=== PATIENT | female | born 1935 | race Caucasian/White ===

== ENCOUNTER 2017-11-06 10:22 | Observation (INO) | payer MEDICARE, OTHER ==
[2017-11-06 11:46] LABS: #Eosinphils 0.1 thou/uL (0.0-0.7); #Monocytes 0.6 thou/uL (0.11-0.59); #Neutrophils 7.4 thou/uL (1.40-6.50); %Basophils 0.5 % (0.0-1.0); %Eosinophils 1.6 % (0.0-10.0); %Lymphocytes 10.5 % (21.0-51.0); %Monocytes 6.2 % (0.0-10.0); Hematocrit 37.1 % (36.0-47.0); Mean Platelet Volume 5.3 fL (7.4-10.4); Red Blood Cell (RBC) Count 3.97 mill/uL (4.20-5.40); White Blood Cell (WBC) Count 9.1 thou/uL (4.8-10.8)
[2017-11-06 11:53] LABS: PTT 28.6 SEC (22.9-36.1); Prothrombin Time 12.5 SEC (12.0-14.7)
[2017-11-06 11:57] LABS: Lactic Acid - Sepsis 1.5 mmol/L (0.5-2.2)
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
[2017-11-06 12:06] LABS: Troponin I Less than 0.010 ng/mL (< 0.028)
[2017-11-06 12:09] LABS: Anion Gap 15 mmol/L (10-20); BUN (Urea Nitrogen) 19 mg/dL (9.8-20.1); CK (CPK) 130 U/L (29-168); Calc. Creatinine Clearance 0 mL/min (70-130); Carbon Dioxide 21 mmol/L (23-31); Chloride 95 mmol/L (98-107); Estimated GFR-MDRD 52; Lipase 21 U/L (8-78)
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
[2017-11-06 13:43] LABS: Bilirubin Negative (Negative); Blood, Urine Negative (Negative); Glucose, Urine (Dipstick) Negative (Negative); Ketone, Urine Negative (Negative); Nitrite Negative (Negative); Protein, Urine (Dipstick) Negative (Neg-Trace); Urobilinogen 0.2 mg/dL (0.2-1.0)
[2017-11-06] MEDS ORDERED: Acetaminophen 325 MG TAB PO PRN (16:02)
[2017-11-06] MEDS ORDERED: Acetaminophen 650 MG Suppository PR PRN (16:02)
[2017-11-06 17:04] LABS: Magnesium 2.1 mg/dL (1.6-2.6); Phosphorus 3.1 mg/dL (2.3-4.7)
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
[2017-11-06] MEDS ORDERED: ISOVUE-370 76%-LOCM 1 ML ONE (17:47)
[2017-11-06 18:55] VITALS: BMI 25.0
[2017-11-06] MEDS: Sodium Chloride 0.9% 1,000 ML IV SCH (19:55)
[2017-11-06] MEDS ORDERED: Ondansetron HCl/PF 4 MG/2 ML Vial IVP PRN (20:14)
[2017-11-06] MEDS ORDERED: Acetaminophen/Codeine 30-300mg Tablet PO PRN (20:14)
[2017-11-06] MEDS: Temazepam 15 MG CAP PO SCH (20:24)
[2017-11-06] MEDS: traMADol HCl 50 MG TAB PO SCH (20:26)
[2017-11-07 05:05] LABS: #Eosinphils 0.1 thou/uL (0.0-0.7); #Lymphocytes 1.4 thou/uL (1.20-3.40); #Monocytes 0.8 thou/uL (0.11-0.59); #Neutrophils 4.1 thou/uL (1.40-6.50); %Basophils 0.7 % (0.0-1.0); %Eosinophils 1.5 % (0.0-10.0); %Lymphocytes 21.3 % (21.0-51.0); %Monocytes 13.1 % (0.0-10.0); Hematocrit 31.9 % (36.0-47.0); Mean Platelet Volume 5.2 fL (7.4-10.4); Red Blood Cell (RBC) Count 3.43 mill/uL (4.20-5.40); White Blood Cell (WBC) Count 6.5 thou/uL (4.8-10.8)
[2017-11-07 05:35] LABS: Anion Gap 12 mmol/L (10-20); BUN (Urea Nitrogen) 15 mg/dL (9.8-20.1); Calc. Creatinine Clearance 56 mL/min (70-130); Calcium 9.4 mg/dL (7.8-10.44); Carbon Dioxide 24 mmol/L (23-31); Chloride 97 mmol/L (98-107); Estimated GFR-MDRD 69
[2017-11-07] MEDS: Cephalexin 250 MG CAP PO SCH (09:09)
[2017-11-07] MEDS: Sodium Chloride 0.9% 1,000 ML IV SCH ×2 (09:10→15:17)
[2017-11-07] MEDS: CeleCOXIB 100 MG CAP PO SCH (09:10)
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
[2017-11-07] MEDS ORDERED: Amlodipine 5 MG TAB PO SCH (13:30)
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
--- NOTE | 2017-11-07 18:39 | MRI ---
MR ANGIOGRAM BRAIN: Date: 11-07-17 Provided Clinical History: Syncope. FINDINGS: 3D [id number] imaging was performed of the hus[place] of [place]. There is no evidence for focal vesse l stenosis, branch occlusion or aneurysm within the limitations of this technique. IMPRESSION: Normal MRA brain. POS: [facility]
--- NOTE | 2017-11-07 20:48 | MRI ---
MRI BRAIN WITH AND WITHOUT CONTRAST: Date: 11-07-17 Provided Clinical History: Syncope. FINDINGS: Evaluation is limited due to patient motion on the T2 weighted sequence. The ventricular system appears normal in size and morphology. There is no evidence for intracranial h emorrhage or mass effect. There is conspicuous patchy signal alteration involving the periventricular and deep cerebral white matter, most likely reflecting changes of chronic microvascular ischemic tristen nge. There is no evidence for restricted diffusion to suggest recent infarction. There is no abnormal contrast enhancement identified. Appropriate flow voids are seen within the major intracranial vesse ls. The extracranial soft tissues and calvarial marrow signal demonstrate an unremarkable MR appearan ce. IMPRESSION: Limited examination as described above, with evidence for extensive chronic microvascular white matte r ischemic change. No evidence for an acute intracranial abnormality. POS: [facility]
[2017-11-07] MEDS: Temazepam 15 MG CAP PO SCH (21:47)
[2017-11-07] MEDS: traMADol HCl 50 MG TAB PO SCH (21:47)
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
[2017-11-08] MEDS: Sodium Chloride 0.9% 1,000 ML IV SCH (05:02)
[2017-11-08 05:06] LABS: Anion Gap 12 mmol/L (10-20); BUN (Urea Nitrogen) 12 mg/dL (9.8-20.1); Calc. Creatinine Clearance 59 mL/min (70-130); Calcium 9.3 mg/dL (7.8-10.44); Carbon Dioxide 25 mmol/L (23-31); Chloride 101 mmol/L (98-107); Estimated GFR-MDRD 74
[2017-11-08 05:37] LABS: Band 1 % (5-11); Hematocrit 32.9 % (36.0-47.0); Mean Platelet Volume 5.4 fL (7.4-10.4); Neutrophil 72 % (42-75); Red Blood Cell (RBC) Count 3.51 mill/uL (4.20-5.40); White Blood Cell (WBC) Count 5.3 thou/uL (4.8-10.8)
[2017-11-08 08:35] VITALS: BP 148/69; TEMP 98.2
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
[2017-11-08] MEDS ORDERED: Amlodipine 5 MG TAB PO SCH (09:00)
[2017-11-08] MEDS: CeleCOXIB 100 MG CAP PO SCH (10:17)
[2017-11-08] MEDS: Cephalexin 250 MG CAP PO SCH (10:17)
--- NOTE | 2017-11-08 11:17 | DIS ---
DATE OF ADMISSION: 11/06/2017 DATE OF DISCHARGE: 11/08/2017 PRIMARY CARE PROVIDER: Priyank Ramos M.D. DISCHARGE DIAGNOSES: 1. Syncope. 2. Hyponatremia. 3. Orthostatic hypotension. Please note that this is a second discharge summary dictated on this patient. I dictated one on 11/07/2017. However, prior to discharge, patient developed dizziness, nausea and vomiting. Discharge was held. At that time, she had orthostatic hypotension. Repeat vitals did not show any orthostatic hypotension. CONDITION OF PATIENT ON THE DAY OF DISCHARGE: Stable. I assessed Ms. Hernandez on the day of discharge. She denies any chest pain or palpitations. She denies any dizziness. PHYSICAL EXAMINATION: VITAL SIGNS: Stable. There is no orthostasis. HEART: S1 and S2 are heard, regular. LUNGS: Clear to auscultation bilaterally. HOSPITAL COURSE: Ms. Hernandez is a pleasant 82-year-old lady who was admitted to [facility] on 11/08/2017 for syncope and hyponatremia. She was seen by Cardiology Service. Please refer to my previous discharge summary for further information. She was also seen by Neurology Service. She had an MRI of the brain with and without contrast. The evaluation was limited due to patient motion on the T2 weighted sequence. There was no evidence for acute intracranial abnormality. She also had MRA of the brain, which was normal. She was assessed by Neurology and it was felt that her syncope was likely orthostatic in nature. As noted in the previous discharge summary, her diuretics were stopped and she has been started on amlodipine. Many thanks for allowing me to participate in your patient's care. Please feel free to contact me with any questions or concerns. LABORATORY DATA: On the day of discharge, she has sodium 134, potassium 3.6, creatinine 0.75, 8:00 a.m. cortisol level normal at 17.6, white count 5300, hemoglobin 11, and platelet count 270,000. CONSULTATIONS DURING THIS HOSPITALIZATION: Neurology, Dr. Azeb French and Cardiology, Dr. Lawanda Jo. DISCHARGE MEDICATIONS: Keflex 250 mg daily, temazepam 15 mg at bedtime, Norvasc 2.5 mg daily and tramadol 50 mg at bedtime. DISCHARGE DESTINATION: Home. ADDENDUM: The patient's 2D echocardiogram shows that her left ventricular ejection fraction was 60%-65%, normal rate ventricular size and function, trace mitral regurgitation, structurally normal aortic valve and mild tricuspid regurgitation. MTDD
== END 2017-11-08 11:48 | disposition home or self-care (01) ==
LOC: ERS 10:22 → 2SW 18:12
PROVIDERS: ADMIT Internal Medicine; ATTEND Internal Medicine
DX: I95.1 Orthostatic hypotension (principal); E87.1 Hypo-osmolality and hyponatremia; M25.512 Pain in left shoulder; S22.42XA Multiple fractures of ribs, left side, initial encounter for closed fracture; S42.002A Fracture of unspecified part of left clavicle, initial encounter for closed fracture; Z85.72 Personal history of non-Hodgkin lymphomas; Z87.440 Personal history of urinary (tract) infections; Z80.0 Family history of malignant neoplasm of digestive organs; Z80.1 Family history of malignant neoplasm of trachea, bronchus and lung; Z90.710 Acquired absence of both cervix and uterus; Z90.49 Acquired absence of other specified parts of digestive tract; V43.52XA Car driver injured in collision with other type car in traffic accident, initial encounter
CPT/HCPCS: 70450; 70544; 70553; 71010; 72125; 73030; 74177; 80048 ×3; 81003; 82533; 82550; 82553; 83605; 83690; 83735; 83930; 83935; 84100; 84484; 85025 ×3; 85610; 85730; 87086; 93005; 93306; 96361 ×4; 96374; 97139 ×2; 99285; G0378; 36415; 96360; J2405

== ENCOUNTER 2018-03-21 12:36 | Outpatient (CLI) | payer MEDICARE ==
[2018-03-21] MEDS ORDERED: ISOVUE-370 76%-LOCM 1 ML ONE (13:11)
== END 2018-03-21 12:37 | disposition home or self-care (01) ==
LOC: BICCT 12:36
PROVIDERS: ATTEND Otolaryngology
DX: R22.0 Localized swelling, mass and lump, head (principal); D49.0 Neoplasm of unspecified behavior of digestive system; R59.1 Generalized enlarged lymph nodes; K11.0 Atrophy of salivary gland
CPT/HCPCS: 70491

== ENCOUNTER 2018-03-29 12:03 | Day surgery (SDC) | payer MEDICARE ==
[2018-03-28 12:53] VITALS: BMI 25.4
[2018-03-29] MEDS ORDERED: Sodium Bicarbonate 2.5 MEQ/5 ML VIAL ONE (12:45)
[2018-03-29 14:31] VITALS: BP 143/68; TEMP 97.5
--- NOTE | 2018-03-29 15:50 | ULT ---
FNA BIOPSY ULTRASOUND GUIDANCE LEFT FACE: Date: 03/29/18 CLINICAL INDICATION: Left facial mass, history of lymphoma. PROCEDURE: Informed consent was obtained. The patient was escorted to the procedural suite. The patient was plac ed in the supine position. The mass of interest of the left buccal region was localized sonographical ly. The regional soft tissues were appropriately prepped and draped in the standard sterile fashion. Topical anesthesia was achieved with buffered 1% lidocaine. Subsequently, five separate FNA samples u sing FNA sampling procedure using 25 gauge needles were performed. These samples were provided to the attending pathologist, Josr Lora. The requested number of FNA sampling procedures for interpreta tion were performed. All devices were removed from the patient. The patient tolerated the procedure w ell and without evidence of complication. Hemostasis was achieved. Imaging was stored for documentati on. IMPRESSION: Successful ultrasound guided FNA/biopsy of left facial mass, left buccal region. Pathology results pending. POS: [facility]
== END 2018-03-29 14:00 | disposition home or self-care (01) ==
LOC: ULT 12:03
PROVIDERS: ATTEND Internal Medicine Hematology & Oncology
PROC: 07D Lymphatic and Hemic Systems, Extraction (ICD-10-PCS; principal; 2018-03-29)
DX: C85.11 Unspecified B-cell lymphoma, lymph nodes of head, face, and neck (principal); C82.90 Follicular lymphoma, unspecified, unspecified site; Z79.899 Other long term (current) drug therapy
CPT/HCPCS: 10022; 76942; 88172; 88173; 88184

== ENCOUNTER 2018-04-06 08:14 | Outpatient (CLI) | payer MEDICARE ==
--- NOTE | 2018-04-06 12:59 | PET ---
PET SCAN WITH CT ATTENUATION CORRECTION: History An 83-year-old female. Non-Hodgkin's lymphoma. COMPARISON: None. TECHNIQUE: PET scan with CT attenuation correction is performed from the base of the brain to the proximal thigh s following the intravenous administration of 12.2 mCi of [id number]. HEAD AND NECK: Extensive FDG avidity involving multiple lymph nodes in the left neck. There is a left periauricular lymph node with a maximum SUV of 3.8, and an additional left periauricular lymph node with a maximum SUV of 3.1, left level II lymph nodes with a maximum SUV of 3.5, left level I lymph nodes with an YI V of 5.6 and 6.3, left level V lymph nodes with a maximum SUV ranging between 2.3 and 3.4. CHEST: Increased FDG avidity involving the lymph nodes in the AP window with a maximum SUV of 2.8. Increase d FDG avidity in the right hilum with a maximum SUV of 4.1. ABDOMEN AND PELVIS: No abnormal FDG localization. OSSEOUS: No abnormal FDG. The maximum SUV of the liver is 3.2. The maximum SUV of the left ventricle is 2.6. Based upon these findings, the patient has a Gillian score of 5B. IMPRESSION: Neck and chest lymphoma as described above. Maximum SUVs have been described above. Hillview score is 5B. POS: [facility]
== END 2018-04-06 08:15 | disposition home or self-care (01) ==
LOC: PET 08:14
PROVIDERS: ATTEND Internal Medicine Hematology & Oncology
DX: C85.90 Non-Hodgkin lymphoma, unspecified, unspecified site (principal)
CPT/HCPCS: 78815; A9552

== ENCOUNTER 2018-07-04 12:09 | Outpatient (CLI) | payer MEDICARE ==
--- NOTE | 2018-07-04 16:17 | PET ---
RADIONUCLIDE PET SCAN WITH ATTENUATION CORRECTION: HISTORY: Non-Hodgkin's lymphoma. Restaging. COMPARISON: 04/06/18. FINDINGS: Uptake is again demonstrated throughout the enteric system and ulna along each urinary tract. Uptake just lateral to the left side of the mandible currently shows a maximum SUV of 5.5 (previously 10.1). Left internal jugular lymph nodes show a maximum SUV of 3.1 (previously 3.5). Left submandi bular lymph node shows a maximum SUV of 4.1 (previously 10.1). A hypermetabolic node just lateral to the left thyroid lobe shows a maximum SUV of 2.3 (4.4). In the mediastinum, activity at the right hilum shows a maximum SUV of 3.9 (4.1). AP window lymph no de uptake shows a maximum SUV of 3.3 (2.8). Liver uptake calculated at 3.1 maximum SUV. Mediastinum 2.6. IMPRESSION: Significant improvement. Partial response. Deauville score 4. POS: [facility]
== END 2018-07-04 12:10 | disposition home or self-care (01) ==
LOC: PET 12:09
PROVIDERS: ATTEND Internal Medicine Hematology & Oncology
DX: C85.88 Other specified types of non-Hodgkin lymphoma, lymph nodes of multiple sites (principal)
CPT/HCPCS: 78815; A9552

== ENCOUNTER 2019-04-18 12:49 | Outpatient (CLI) | payer MEDICARE ==
--- NOTE | 2019-04-18 14:10 | RAD ---
TWO VIEWS CHEST: Date: 04-18-19 Provided Clinical History: Dyspnea. FINDINGS: Comparison 11-06-17. Cardiac and mediastinal silhouette is within normal limits. No focal consolidati on, pleural fluid, or pneumothorax apparent. Nonspecific prominence of the pulmonary interstitium. Va scular calcification involves the aortic arch. IMPRESSION: No evidence for an acute cardiopulmonary process. POS: [facility]
== END 2019-04-18 12:50 | disposition home or self-care (01) ==
LOC: RAD 12:49
PROVIDERS: ATTEND Internal Medicine Critical Care Medicine
DX: R06.00 Dyspnea, unspecified (principal)
CPT/HCPCS: 71046

== ENCOUNTER 2019-08-01 11:40 | Inpatient (IN) | payer MEDICARE ==
[2019-08-01] MEDS ORDERED: Diltiazem 125 MG/25 ML ONE (12:04)
[2019-08-01 12:40] LABS: Hemoglobin 10.2 g/dL (12.0-16.0); Mean Corpuscular HGB CONC 33.6 g/dL (32.0-36.0); Mean Corpuscular Hemoglobin 29.8 pg (27.0-31.0); Mean Corpuscular Volume 88.6 fL (78.0-98.0); Mean Platelet Volume 5.2 fL (7.4-10.4); Platelet Count 240 thou/uL (130-400); RBC Distribution Width 13.5 % (11.5-14.5); Red Blood Cell (RBC) Count 3.42 mill/uL (4.20-5.40); White Blood Cell (WBC) Count 12.7 thou/uL (4.8-10.8)
[2019-08-01 12:59] LABS: ALT (SGPT) 11 U/L (8-55); AST (SGOT) 10 U/L (5-34); Albumin 2.7 g/dL (3.4-4.8); Alkaline Phosphatase 212 U/L (40-150); Anion Gap 12 mmol/L (10-20); BUN (Urea Nitrogen) 29 mg/dL (9.8-20.1); Bilirubin, Total 0.6 mg/dL (0.2-1.2); CK (CPK) 10 U/L (29-168); Calc. Creatinine Clearance 0 mL/min (70-130); Calcium 8.2 mg/dL (7.8-10.44); Carbon Dioxide 16 mmol/L (23-31); Chloride 105 mmol/L (98-107); Estimated GFR-MDRD 23; Globulin 2.1 g/dL (2.4-3.5); Glucose 104 mg/dL (83-110); Potassium 3.2 mmol/L (3.5-5.1); Protein, Total 4.8 g/dL (6.0-8.3); Sodium 130 mmol/L (136-145)
[2019-08-01 13:00] LABS: Band 50 % (5-11); Dohle Bodies SLIGHT; Lymphocytes 5 % (21-51); MDiff Complete? YES; Monocytes 6 % (0-10); Neutrophil 39 % (42-75); Platelet Morphology Comment Appears Adequate; Polychromasia SLIGHT = 2-3 cells (100X) (0-2/hpf); Reflex for Review?? YES
--- NOTE | 2019-08-01 13:15 | RAD ---
CHEST ONE VIEW: 08/01/19 COMPARISON: 11/06/17 HISTORY: Pain. Atrial fibrillation. FINDINGS: Normal cardiac silhouette. Pulmonary vessels and hilum are normal. Costophrenic angles are clear. The re are increased opacities superimposed upon chronic change. Possibility of interstitial infiltrate i s raised. No pneumothorax or acute osseous abnormalities. Old posterior left third rib fracture is no emanuel. IMPRESSION: Interstitial infiltrate superimposed upon chronic change. Continued surveillance to ensure resolution . POS: [facility]
[2019-08-01] MEDS ORDERED: Enoxaparin Sodium 80 MG/0.8 ML SYRINGE ONE (14:14)
[2019-08-01] MEDS ORDERED: Enoxaparin Sodium 60 MG/0.6 ML SYRINGE ONE (14:17)
[2019-08-01] MEDS ORDERED: Diltiazem 125 MG in Sodium Chloride 0.9% 100 ML IVPB SCH (15:15)
--- NOTE | 2019-08-01 16:03 | HP ---
PRIMARY CARE PROVIDER: Dr. Priyank Ramos. The patient referred to the [facility] by [facility]. ADMITTING COMPLAINT: Fever. HISTORY OF PRESENT ILLNESS: The patient has had a 5-day illness. She has had temperatures up to 102 in the evening. She has had a hard, shaking chills, sweats during the evenings. It is pertinent that she was diagnosed with UTI 2 days ago as an outpatient, put on an oral agent for which she has only had three of the q.i.d. medicine. PAST MEDICAL HISTORY: Pertinent only for recurrent UTIs and a history of lymphoma first in 1978 recurred in 1979 and recurred again later. She has been on no medicines for it in about 3 years. She has no history of cardiac disease, hypertension, diabetes. REVIEW OF SYSTEMS: GENERAL: She has had some dizziness with the fever and some significant malaise. CARDIORESPIRATORY: No chest pain. No orthopnea. No paroxysmal nocturnal dyspnea. No palpitations. RESPIRATION: She has had dyspnea on exertion, but no coughing or wheezing. GASTROINTESTINAL: She had nausea and vomiting about a week ago and she has had diarrhea frequently for the past 5 days. She states it is a creamy looking substance. MEDICATIONS: Chronic medicines none. ALLERGIES: NONE. PHYSICAL EXAMINATION: VITAL SIGNS: She was initially hypotensive, given a bolus of normal saline, started on diltiazem. Her current blood pressure is 136/84, pulse is in the 115 range, respirations 16. She is currently afebrile. NECK: She has no neck vein distention. CHEST: Clear to auscultation and percussion. HEART: Has a rapid irregular rhythm. Variable heart sounds. No murmurs appreciated. ABDOMEN: Soft. Bowel sounds are somewhat increased. No tenderness. No mass. EXTREMITIES: No cyanosis, clubbing, or edema. SKIN: Warm and dry. IMAGING DATA: Studies that were done: EKG reveals atrial fibrillation with a rapid ventricular response and no significant ST-T abnormality at this time. Chest x-ray, normal cardiac silhouette. No confluent infiltrates, pulmonary edema. LABORATORY DATA: Sodium 130, potassium 3.2, CO2 16, BUN 29, creatinine 2.04, alkaline phosphatase 212. White count 12.7 with a marked bandemia. Hemoglobin 10.2, and platelet count 240,000. ADMITTING DIAGNOSES: 1. Sepsis syndrome with acute kidney injury, acidosis. 2. Atrial fibrillation with a rapid ventricular response. 3. Diarrhea. 4. Urinary tract infection with Escherichia coli sensitive to multiple cephalosporins. 5. History of lymphoma. PLAN: 1. IV fluids. 2. Blood cultures. 3. Stool for C diff. 4. Increase diltiazem to 10 mg an hour. 5. Rocephin IV. 6. Frequent re-evaluations. 7. I have discussed code status with the patient and her . She is full code. He is the surrogate decision maker. Job ID: [id number]
[2019-08-01 16:07] VITALS: BMI 24.3
[2019-08-01] MEDS ORDERED: Acetaminophen 325 MG TAB PO PRN (16:42)
[2019-08-01] MEDS ORDERED: Senokot S 8.6-50 MG TAB PO PRN (16:42)
[2019-08-01] MEDS ORDERED: HYDROcodone/Acetaminophen 5/325 mg Tablet PO PRN (16:42)
[2019-08-01] MEDS: Lactated Ringer's 1,000 ML IV SCH (17:46)
[2019-08-01] MEDS: cefTRIAXone\\ROCEPHIN 1 GM in Sodium Chloride 0.9% 100 ML IVPB SCH (17:53)
[2019-08-01] MEDS: Temazepam 15 MG CAP PO SCH (21:16)
[2019-08-01] MEDS: Famotidine 20 MG TAB PO SCH (21:16)
[2019-08-02] MEDS: Lactated Ringer's 1,000 ML IV SCH ×3 (03:16→21:25)
[2019-08-02 05:13] LABS: #Eosinphils 0.2 thou/uL (0.0-0.7); #Lymphocytes 0.9 thou/uL (1.20-3.40); #Monocytes 1.1 thou/uL (0.11-0.59); #Neutrophils 9.5 thou/uL (1.40-6.50); %Basophils 0.3 % (0.0-1.0); %Lymphocytes 7.8 % (21.0-51.0); %Monocytes 9.6 % (0.0-10.0); %Neutrophils 80.4 % (42.0-75.0); Hemoglobin 9.7 g/dL (12.0-16.0); Mean Corpuscular HGB CONC 33.6 g/dL (32.0-36.0); Mean Corpuscular Hemoglobin 29.8 pg (27.0-31.0); Mean Corpuscular Volume 88.6 fL (78.0-98.0); Mean Platelet Volume 5.4 fL (7.4-10.4); Platelet Count 273 thou/uL (130-400); RBC Distribution Width 13.7 % (11.5-14.5); Red Blood Cell (RBC) Count 3.26 mill/uL (4.20-5.40); White Blood Cell (WBC) Count 11.9 thou/uL (4.8-10.8)
[2019-08-02 05:41] LABS: ALT (SGPT) 11 U/L (8-55); AST (SGOT) 14 U/L (5-34); Albumin 2.6 g/dL (3.4-4.8); Alkaline Phosphatase 201 U/L (40-150); Anion Gap 13 mmol/L (10-20); BUN (Urea Nitrogen) 29 mg/dL (9.8-20.1); Bilirubin, Total 0.4 mg/dL (0.2-1.2); Calc. Creatinine Clearance 24 mL/min (70-130); Carbon Dioxide 18 mmol/L (23-31); Chloride 104 mmol/L (98-107); Estimated GFR-MDRD 28; Globulin 2.4 g/dL (2.4-3.5); Glucose 92 mg/dL (83-110); Potassium 3.6 mmol/L (3.5-5.1); Sodium 131 mmol/L (136-145)
[2019-08-02] MEDS ORDERED: Prevnar 13-Val Conj/PF 0.5 ML SYRINGE IM ONE (09:00)
--- NOTE | 2019-08-02 09:37 | PDOC.HOSPP ---
- Subjective Encounter Date: 08/02/19 Encounter Time: 09:33 Subjective: no fever, sweats, etc - Objective Vital Signs & Weight: Vital Signs (12 hours) Temp Pulse Resp BP BP Pulse Ox 08/02/19 07:50 97 08/02/19 07:01 98.4 F 82 20 115/65 97 08/02/19 03:17 98.2 F 70 16 104/53 L 96 08/01/19 23:55 98.8 F 85 18 126/58 L 96 Weight Weight 141 lb 8 oz I&O: 08/01/19 08/02/19 08/03/19 06:59 06:59 06:59 Intake Total 300 Balance 300 Result Diagrams: 08/02/19 05:01 08/02/19 05:01 Hospitalist ROS - Medication Medications: Active Medications Generic Name Dose Route Start Last Admin Trade Name Freq PRN Reason Stop Dose Admin Famotidine 20 mg 08/01/19 21:00 08/01/19 21:16 Pepcid PO 20 mg QPM JOSE FRANCISCO Administration Ceftriaxone Sodium 1 gm/ 100 mls @ 200 mls/hr 08/01/19 17:00 08/01/19 17:53 Sodium Chloride IVPB 100 mls Q24HR JOSE FRANCISCO Administration Lactated Ringer's 1,000 mls @ 125 mls/hr 08/01/19 17:00 08/02/19 03:16 Lactated Ringer's IV 1,000 mls .Q8H JOSE FRANCISCO Administration Temazepam 15 mg 08/01/19 21:00 08/01/19 21:16 Restoril PO 15 mg HS JOSE FRANCISCO Administration - Exam Neck: no JVD Heart: RRR, no murmur Respiratory: CTAB Gastrointestinal: soft, normal bowel sounds Extremities: no edema Hosp A/P (1) Sepsis Code(s): A41.9 - SEPSIS, UNSPECIFIED ORGANISM Status: Acute Qualifiers: Sepsis type: Escherichia coli Severe sepsis acute organ dysfunction type: acute renal failure Severe sepsis shock status: without septic shock (2) Atrial fibrillation with rapid ventricular response Code(s): I48.91 - UNSPECIFIED ATRIAL FIBRILLATION Status: Acute (3) Diarrhea Code(s): R19.7 - DIARRHEA, UNSPECIFIED Status: Acute Qualifiers: Diarrhea type: unspecified type Qualified Code(s): R19.7 - Diarrhea, unspecified (4) Lymphoma in remission Code(s): C85.90 - NON-HODGKIN LYMPHOMA, UNSPECIFIED, UNSPECIFIED SITE Status: Chronic (5) CKD stage G3b/A2, GFR 30-44 and albumin creatinine ratio 30-299 mg/g Code(s): N18.3 - CHRONIC KIDNEY DISEASE, STAGE 3 (MODERATE) Status: Acute (6) Urinary tract infection Status: Acute Qualifiers: Urinary tract infection type: site unspecified Hematuria presence: without hematuria Qualified Code(s): N39.0 - Urinary tract infection, site not specified - Plan cont iv rocephin for sepsis, uti atrial fi spontaeneouly resoved- await cardiology input
[2019-08-02] MEDS ORDERED: Triple Antibiotic Oint 1 GM Packet TOP PRN (11:50)
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
[2019-08-02] MEDS: cefTRIAXone\\ROCEPHIN 1 GM in Sodium Chloride 0.9% 100 ML IVPB SCH (16:57)
[2019-08-02] MEDS ORDERED: traMADol HCl 50 MG TAB PO SCH (21:00)
[2019-08-02] MEDS ORDERED: Temazepam 15 MG CAP PO SCH (21:00)
[2019-08-02] MEDS: Temazepam 15 MG CAP PO SCH (21:24)
[2019-08-02] MEDS: Apixaban 2.5 MG TAB PO SCH (21:25)
[2019-08-02] MEDS: Famotidine 20 MG TAB PO SCH (21:25)
[2019-08-03 04:41] LABS: #Basophils 0.1 thou/uL (0.0-0.2); #Eosinphils 0.3 thou/uL (0.0-0.7); #Lymphocytes 1.1 thou/uL (1.20-3.40); #Monocytes 0.8 thou/uL (0.11-0.59); %Basophils 0.8 % (0.0-1.0); %Eosinophils 2.8 % (0.0-10.0); %Lymphocytes 11.4 % (21.0-51.0); Hemoglobin 9.9 g/dL (12.0-16.0); Mean Corpuscular HGB CONC 34.1 g/dL (32.0-36.0); Mean Corpuscular Hemoglobin 30.3 pg (27.0-31.0); Mean Corpuscular Volume 88.8 fL (78.0-98.0); Mean Platelet Volume 5.4 fL (7.4-10.4); Platelet Count 319 thou/uL (130-400); RBC Distribution Width 13.8 % (11.5-14.5); Red Blood Cell (RBC) Count 3.27 mill/uL (4.20-5.40); White Blood Cell (WBC) Count 9.2 thou/uL (4.8-10.8)
[2019-08-03 04:59] LABS: ALT (SGPT) 24 U/L (8-55); AST (SGOT) 41 U/L (5-34); Albumin 2.7 g/dL (3.4-4.8); Alkaline Phosphatase 194 U/L (40-150); Anion Gap 11 mmol/L (10-20); BUN (Urea Nitrogen) 25 mg/dL (9.8-20.1); Bilirubin, Total 0.4 mg/dL (0.2-1.2); Calc. Creatinine Clearance 28 mL/min (70-130); Calcium 9.1 mg/dL (7.8-10.44); Carbon Dioxide 21 mmol/L (23-31); Chloride 104 mmol/L (98-107); Estimated GFR-MDRD 33; Globulin 2.3 g/dL (2.4-3.5); Glucose 91 mg/dL (83-110); Potassium 3.4 mmol/L (3.5-5.1); Sodium 133 mmol/L (136-145)
[2019-08-03 08:06] VITALS: BP 129/76; TEMP 98.5
[2019-08-03] MEDS: Lactated Ringer's 1,000 ML IV SCH (09:07)
[2019-08-03] MEDS: Apixaban 2.5 MG TAB PO SCH (09:10)
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
--- NOTE | 2019-08-04 05:24 | DIS ---
DATE OF ADMISSION: 08/01/2019 DATE OF DISCHARGE: 08/03/2019 DISCHARGE DIAGNOSES: 1. Atrial fibrillation with rapid ventricular rate. 2. Urinary tract infection with Escherichia coli. 3. Heme-positive stools. 4. Diarrhea. 5. Acute on chronic kidney disease. 6. Chronic kidney disease, stage 3. 7. Chronic cough. 8. Anemia of chronic renal disease. 9. Hyponatremia. 10. Hypokalemia. 11. Elevated alkaline phosphatase. 12. History of lymphoma. HISTORY OF PRESENT ILLNESS: This patient is an 84-year-old female, who presented via the emergency department and initially admitted by Dr. Camargo. Please see his dictated H and P for full details. Essentially, the patient presented with fever she had noted for 5 days. She had been diagnosed with urinary tract infection 2 days prior and had been on p.o. nitrofurantoin. In her workup, she was noted to be in atrial fibrillation with rapid ventricular rate without significant findings on her EKG. Otherwise, she had hyponatremia with a sodium of 130, potassium was 3.2, creatinine was 2.04 given her GFR that was below her baseline. White count was 12.7 with bandemia. She was diagnosed with sepsis due to urinary tract infection. She was also noted to report episodes of diarrhea. She was admitted to the hospital, started on IV antibiotics with Rocephin and IV diltiazem drip. HOSPITAL COURSE: The patient had fairly rapid spontaneous conversion of her atrial fibrillation to normal sinus rhythm. She had an echocardiogram, which revealed ejection fraction of 55% to 60%, grade 1/3 diastolic dysfunction, moderate TR and some elevated right ventricular systolic pressure of 41 mmHg. She was seen in consultation by Cardiology, who had the patient on p.o. diltiazem and p.o. metoprolol along with low-dose Eliquis given her renal function. The patient remained in normal sinus rhythm. The patient's urinary tract infection was initially treated with Rocephin. Cultures from the outpatient setting confirmed that it was E coli and that it was sensitive to everything tested with the exception of Bactrim. The patient has recurrent urinary tract infections with numerous E coli infections. The patient's diarrhea was evaluated with lab testing including C diff, which was negative. Stool for Campylobacter antigen was negative. Shiga toxin negative. She was positive for occult blood and elevated lactoferrin. She reported that her diarrhea was beginning to ladonna significantly at the time of her discharge. The patient did have some mild hyponatremia at the time of admission. Her sodium increased daily with hydration. Plan reviewing her previous numbers as she is chronically hyponatremic, running around 132 to 133, and she was at that baseline at the time of discharge. The patient is also noted to have acute renal insufficiency on top of chronic kidney disease, stage 3. Her GFR typically runs around 50s to 60s. At the time of admission, she was at 23; however, with hydration, it continued to climb up to 33 and it appeared as though it was improving. The patient had mild hypokalemia, treated with oral repletion. The patient had slightly elevated alkaline phosphatase, felt to likely be due to her diarrheal illness. Prior values were within the normal range. It was improving and can be followed up as an outpatient. The patient's heme-positive stools were felt to be due to more of an acute diarrheal illness. Her hemoglobin remained stable and there was no roya blood. It was felt this could be followed up as an outpatient. The patient reported a chronic cough. She says she has seen Dr. Lopez in the past and has worked this up and it is essentially unchanged. PHYSICAL EXAMINATION: VITAL SIGNS: On the day of discharge, temperature is 98.5, pulse 76, respirations 20, O2 saturation 94% on room air, BP 129/76. GENERAL APPEARANCE: Age-appropriate female, in no distress. HEENT: She has some scabbing herpes labialis lesions. HEART: Regular rate and rhythm without murmurs, gallops, or rubs. LUNGS: Clear to auscultation bilaterally with good chest wall expansion and air exchange. ABDOMEN: Soft, nontender, and nondistended. EXTREMITIES: No edema. DISPOSITION: The patient will be discharged to home. DISCHARGE MEDICATIONS: She will continue with her usual home medications including; 1. Aldactone 12.5 mg daily. 2. Tramadol 50 mg at bedtime. 3. Temazepam 15 mg at bedtime. 4. Celebrex 200 mg daily. Additionally, she will have a prescription for; 1. Metoprolol 25 mg daily. 2. Diltiazem CD 180 mg daily. 3. Ciprofloxacin 500 mg b.i.d. 4. Eliquis 2.5 mg b.i.d. DIET: She is to be on a heart healthy diet. ACTIVITY: As tolerated. FOLLOWUP: She is to follow up with her PCP, Dr. Priyank Ramos next week so that she can have repeat labs. She can return to the hospital here should she have any problems prior to that time. TIME SPENT: Time spent in discharge planning activities including [id number] time with the patient was 36 minutes. Job ID: [id number]
--- NOTE | 2019-08-06 09:40 | PQF ---
[employer] Coordinator Crystal Reports Winform ViewerNOEL TRUJILLO CHRISTIANO CESAR MD [id number] [address] [place] [address] [id number] CLINICAL DOCUMENTATION CLARIFICATION FORM: POST DISCHARGE Addendum to original discharge summary date: ____ Late entry note date: 08/08/2019 DATE: 08/06/2019 ATTN: CHRISTIANO CESAR MD Please exercise your independent, professional judgment in responding to the clarification form. Clinical indicators are provided on the bottom of this form for your review Please check appropriate box(es): [x ] Sepsis [ ] UTI [ ] Localized infection without sepsis [ ] Other diagnosis [ ] Unable to determine For continuity of documentation, please document condition throughout progress notes and discharge summary. Thank You. CLINICAL INDICATORS - SIGNS / SYMPTOMS / LABS - Sepsis syndrome with acute kidney injury, acidosis- H&P, 08/01, Raman Zhang MD - UTI with Escherichia coli sensitive to multiple cephalosporins-H&P, 08/01, Raman Zhang MD - WBC: 12.7-H&P, 08/01, Audrey Zhang MD - Pulse:115, RR:16-H&P, 08/01, Raman Zhang MD - Sepsis, Severe sepsis acute organ dysfunction type : acute kidney failure- Hospital PN, 08/02, Raman Zhang MD - URO sepsis, no more fever on abx IV-Cardiology PN, 08/03, Vania HORNER RISK FACTORS: - Afib with RVR-H&P, 08/01, Raman Zhang MD - Alkaline phosphatase felt to likely be due to her diarrheal illness-H&P, 08/01 , Raman Zhang MD TREATMENTS: -[email or web address].IV-JAN, 08/01 (This form is maintained as a part of the permanent medical record) 2014 [employer]. All Rights Reserved Shazia Morley [not provided] [not provided] MTDD
== END 2019-08-03 10:29 | disposition home or self-care (01) | DRG 872 ==
LOC: ERS 11:40 → ERHOLD 13:11 → 2SE 15:31
PROVIDERS: ADMIT Internal Medicine; ATTEND Internal Medicine
DX: A41.9 Sepsis, unspecified organism (principal); N39.0 Urinary tract infection, site not specified; E87.1 Hypo-osmolality and hyponatremia; C85.90 Non-Hodgkin lymphoma, unspecified, unspecified site; N17.9 Acute kidney failure, unspecified; E87.2 Acidosis; I48.91 Unspecified atrial fibrillation; B96.20 Unspecified Escherichia coli [E. coli] as the cause of diseases classified elsewhere; R19.7 Diarrhea, unspecified; I12.9 Hypertensive chronic kidney disease with stage 1 through stage 4 chronic kidney disease, or unspecified chronic kidney disease; R65.20 Severe sepsis without septic shock; N18.3 Chronic kidney disease, stage 3 (moderate); D63.1 Anemia in chronic kidney disease; E87.6 Hypokalemia; Z79.01 Long term (current) use of anticoagulants; Z90.49 Acquired absence of other specified parts of digestive tract; Z90.710 Acquired absence of both cervix and uterus; Z87.440 Personal history of urinary (tract) infections
CPT/HCPCS: 36415; 71045; 80053; 81001; 82274; 82550; 83630; 84484; 85025; 85060; 87040; 87077; 87086; 87186; 87324; 87427; 87449; 90471; 90670; 93306; 96365; 96366; 96372; G0009; J0696; J1650; J3490

== ENCOUNTER 2019-08-06 09:36 | Outpatient (CLI) | payer MEDICARE ==
--- NOTE | 2019-08-06 11:03 | RAD ---
PA AND LATERAL CHEST: Date: 08/06/19 COMPARISON: 08/01/19. HISTORY: Dyspnea. FINDINGS: Heart size within normal limits. There are atherosclerotic changes of the aorta. Chronic appearing dread ng changes are seen. The bones appear demineralized. There are arthritic changes of the spine. IMPRESSION: Chronic lung change. Stable chest. POS: OFF
== END 2019-08-06 09:37 | disposition home or self-care (01) ==
LOC: RAD 09:36
PROVIDERS: ATTEND Internal Medicine Critical Care Medicine
DX: R06.00 Dyspnea, unspecified (principal)
CPT/HCPCS: 71046

== ENCOUNTER 2019-09-27 10:23 | Outpatient (CLI) | payer MEDICARE ==
--- NOTE | 2019-09-27 15:02 | PET ---
Nuclear medicine FDG PET/CT: (Positron emission tomography and computed tomography) DATE: 09/27/2019 HISTORY: 84-year-old female with non-Hodgkin's lymphoma, subsequent PET scan follow up after treatment. ICD-10 : C85.88. COMPARISON: 07/04/2018 TECHNIQUE: IV injection of F-18 fluorodeoxyglucose (FDG) dose: 10.5 mCi. PET scan and attenuation correction CT performed from skull base to proximal thighs. PET scan and attenuation correction CT thinner slices performed through head and neck. FINDINGS: SUV (standard uptake values) numbers given are maximum SUVs. QCLR used. For Deauville criteria, the mediastinal SUV at aortic arch is 2.7, and liver SUV is 3.4. NECK: Previously demonstrated small piece of tissue in the left preauricular superficial soft tissues, just lateral to the left TMJ had SUV of 3.4 on prior dedicated neck PET/CT images, has now completely resolved. Previously demonstrated small mass located in the soft tissues superficial to the lateral cortex of t he body of the left mandible had previous SUV of 7.4. This is currently not hypermetabolic. The size of the mass is significant smaller also (current SUV 2.1). Previously demonstrated left level 1B submandibular lymph nodes with prior SUV of 6.0 are no longer h ypermetabolic (currently SUV 2.1). Previously hypermetabolic left level 2 or 3 lymph node with SUV of 4.5 is no longer hypermetabolic. C urrent SUV 2.2. Previously hypermetabolic left level 3 lymph node with SUV of 3.1 has currently resolved. Current SUV 1.7 of the region. The lymph node is no longer visible on the attenuation correction CT. There is currently a new small hypermetabolic 0.8 x 0.5 cm soft tissue density nodule in the superfic ial lobe of the right parotid gland inferiorly with SUV of 4.7. This could either represent a lymphomatous intraparotid lymph node or a new primary parotid salivary gland neoplasm. The former is probably more likely. THORAX: There is a new small, approximately 1 cm round right subpectoral/axillary lymph node with 3.6 SUV. New 2 x 0.5 cm right axillary lymph node just lateral to the lateral edge of the right pectoralis faith or muscle with SUV 3.1. Right hilar lymph node previous SUV 3.9. Current SUV 7.0. Subcarinal mediastinal lymph nodes current SUV 5.1. Previously not hypermetabolic. Minimally enlarged prevascular space left upper mediastinum current SUV 4.3. Previous SUV 3.1. ABDOMEN: No suspicious hypermetabolic activity. PELVIS: No suspicious hypermetabolic activity. IMPRESSION: 1. Interval resolution of the hypermetabolic activity involving multiple left cervical lymph nodes. 2. Interval development of a new very small right intraparotid hypermetabolic nodule. 3. Interval development of hypermetabolic, lymphomatous activity involving mediastinal, right hilar, and right axillary lymph nodes. 4. Deauville score 5.
== END 2019-09-27 10:24 | disposition home or self-care (01) ==
LOC: PET 10:23
PROVIDERS: ATTEND Internal Medicine Hematology & Oncology
DX: C85.88 Other specified types of non-Hodgkin lymphoma, lymph nodes of multiple sites (principal); R93.89 Abnormal findings on diagnostic imaging of other specified body structures; K11.8 Other diseases of salivary glands
CPT/HCPCS: 78815; A9552

== ENCOUNTER 2020-09-26 08:03 | Outpatient (CLI) | payer MEDICARE ==
--- NOTE | 2020-09-26 13:20 | PET ---
Radionucleotide PET scan with CT attenuation correction HISTORY: Lymphoma. C85.88. Restaging. COMPARISON: 09/27/2019. FINDINGS: Activity previously associated with a right axillary lymph node is no longer evident. There are now new areas of increased activity associated with minimal soft tissue density at the skin/subcutaneous tissue of the left frontal scalp max SUV 5.6 and the left temporoparietal scalp max SUV 10.9. A small focus of increased activity at the right pre-maxillary deep subcutaneous tissues shows max YI V 4.6. A small focus of uptake associated with the subcutaneous tissue overlying the right zygoma shows max SUV 7.2. Slightly enlarged right preauricular lymph nodes show max SUV 6.4. A lesion associated with the right parotid tail now shows max SUV 7.2 (previously 4.7). Many foci of increased activity along the right jugular chain lymph nodes are associated with only sl ight enlargement. Max SUV 8.4. A right submandibular lymph node shows max SUV 8.9. A slightly enlarged right supraclavicular lymph node shows max SUV 4.0. Increased activity is again shown to involve mediastinal lymph nodes, including the prevascular space max SUV 4.4 (previously 4.3), the right hilum max SUV 9.3 (previously 7.0), and the subcarinal space max SUV 5.3 (previously 5.1). No new hypermetabolic foci are apparent within the abdomen. Nondiagnostic CT attenuation correction images show calcified fibroadenoma the right breast. Cysts in volve the liver and kidneys, measuring up to 0.8 cm at the posterior segment right liver lobe. Gallbladder surgically absent. Small amount of gas is noted within the nondependent portion of the urinary bladder, possibly related to recent instrumentation. IMPRESSION : Overall worsening, in that there are newly hypermetabolic right face and neck lymph nodes and new hyp ermetabolic subcutaneous foci of the face/scalp. Hypermetabolic mediastinal lymph nodes have not changed significantly. Right axillary node from the p revious exam has resolved.
== END 2020-09-26 08:04 | disposition home or self-care (01) ==
LOC: PET 08:03
PROVIDERS: ATTEND Internal Medicine Hematology & Oncology
DX: C85.90 Non-Hodgkin lymphoma, unspecified, unspecified site (principal); I89.8 Other specified noninfective disorders of lymphatic vessels and lymph nodes
CPT/HCPCS: 78815; A9552

== ENCOUNTER 2021-02-13 13:58 | Outpatient (CLI) | payer MEDICARE | END 2021-02-13 13:59 | disposition home or self-care (01) | LOC: BICULT 13:58 | PROVIDERS: ATTEND Internal Medicine Nephrology | DX: C85.90 Non-Hodgkin lymphoma, unspecified, unspecified site (principal); N18.4 Chronic kidney disease, stage 4 (severe); I25.10 Atherosclerotic heart disease of native coronary artery without angina pectoris; I73.9 Peripheral vascular disease, unspecified; N39.0 Urinary tract infection, site not specified; M19.90 Unspecified osteoarthritis, unspecified site; N28.1 Cyst of kidney, acquired | CPT/HCPCS: 76770; 93975 ==

== ENCOUNTER 2021-02-17 16:54 | Inpatient (IN) | payer MEDICARE ==
[~2021-02-17 16:54] MED LIST: Heparin 1,000 UNITS/ML VIAL ONE
[2021-02-17 18:24] LABS: Hemoglobin 12.6 g/dL (12.0-16.0); Mean Corpuscular HGB CONC 33.4 g/dL (32.0-36.0); Mean Corpuscular Hemoglobin 31.6 pg (27.0-31.0); Mean Corpuscular Volume 94.8 fL (78.0-98.0); Mean Platelet Volume 5.5 fL (7.4-10.4); Platelet Count 293 thou/uL (130-400); RBC Distribution Width 11.7 % (11.5-14.5); Red Blood Cell (RBC) Count 3.98 mill/uL (4.20-5.40); White Blood Cell (WBC) Count 20.5 thou/uL (4.8-10.8)
[2021-02-17 18:43] LABS: ALT (SGPT) 15 U/L (8-55); AST (SGOT) 21 U/L (5-34); Albumin 3.7 g/dL (3.4-4.8); Alkaline Phosphatase 149 U/L (40-110); Anion Gap 15 mmol/L (10-20); BUN (Urea Nitrogen) 32 mg/dL (9.8-20.1); Calc. Creatinine Clearance 0 mL/min (70-130); Calcium 9.4 mg/dL (7.8-10.44); Carbon Dioxide 22 mmol/L (23-31); Chloride 100 mmol/L (98-107); Globulin 2.3 g/dL (2.4-3.5); Glucose 117 mg/dL (83-110); Magnesium 1.9 mg/dL (1.6-2.6); Sodium 133 mmol/L (136-145)
[2021-02-17 18:53] LABS: Band 55 % (5-11); Lymphocytes 1 % (21-51); MDiff Complete? YES; Metamyelocyte 2 % (0-0); Monocytes 11 % (0-10); Neutrophil 21 % (42-75); Platelet Morphology Comment Appears Adequate; RBC Morphology Normal; Reactive Lymphocytes 9 % (0-10); Reflex for Review?? NO
[2021-02-17] MEDS ORDERED: cefTRIAXone\\ROCEPHIN 1 GM VIAL ONE (19:44)
[2021-02-17] MEDS ORDERED: Azithromycin 500 MG VIAL ONE (19:44)
[2021-02-17] MEDS ORDERED: Diltiazem 125 MG/25 ML ONE (19:58)
[2021-02-17 20:12] LABS: Bacteria/HPF 3+ HPF (None Seen); Bilirubin Negative (Negative); Blood, Urine 1+ (Negative); Clarity Turbid (Clear); Glucose, Urine (Dipstick) Normal (Negative); Ketone, Urine Negative (Negative); Leukocyte 500 Leu/uL (Negative); Nitrite 1+ (Negative); Protein, Urine (Dipstick) 30 mg/dL (Neg-Trace); Specific Gravity, Urine 1.012 (1.002-1.036); Squamous Epithelial 0-3 HPF (0-3); Urobilinogen Normal mg/dL (Less than 2); WBC/HPF Greater than 50 HPF (0-3); pH, Urine 5.5 (5.0-9.0)
[2021-02-17 21:09] LABS: Troponin I 0.018 ng/mL (< 0.028)
[2021-02-17] MEDS: Sodium Chloride 0.9% 1,000 ML IV SCH (23:23)
[2021-02-18 00:17] LABS: Lactic Acid 2.2 mmol/L (0.5-2.2)
[2021-02-18 00:27] LABS: Troponin I 0.023 ng/mL (< 0.028)
[2021-02-18] MEDS ORDERED: Cefepime 2 GM VIAL ONE (00:59)
[2021-02-18] MEDS: Cefepime 2 GM in Sodium Chloride 0.9% 100 ML IVPB SCH ×2 (01:09→23:59)
[2021-02-18] MEDS ORDERED: Ondansetron ODT 4 MG TAB PO PRN (03:15)
[2021-02-18] MEDS ORDERED: Ondansetron PF 4 MG/2 ML Vial IVP PRN (03:15)
[2021-02-18] MEDS ORDERED: Ondansetron PF 4 MG/2 ML Vial ONE (03:39)
[2021-02-18 04:55] LABS: SARS-CoV-2 PCR by NAA Not Detected (NotDetected)
[2021-02-18 06:15] LABS: Hemoglobin 11.3 g/dL (12.0-16.0); Mean Corpuscular HGB CONC 33.4 g/dL (32.0-36.0); Mean Corpuscular Hemoglobin 31.9 pg (27.0-31.0); Mean Corpuscular Volume 95.4 fL (78.0-98.0); Mean Platelet Volume 5.4 fL (7.4-10.4); Platelet Count 255 thou/uL (130-400); RBC Distribution Width 11.8 % (11.5-14.5); Red Blood Cell (RBC) Count 3.54 mill/uL (4.20-5.40); White Blood Cell (WBC) Count 20.1 thou/uL (4.8-10.8)
[2021-02-18 06:28] LABS: Anion Gap 15 mmol/L (10-20); BUN (Urea Nitrogen) 28 mg/dL (9.8-20.1); Calc. Creatinine Clearance 33 mL/min (70-130); Carbon Dioxide 19 mmol/L (23-31); Chloride 104 mmol/L (98-107); Glucose 113 mg/dL (83-110); Potassium 3.7 mmol/L (3.5-5.1); Sodium 134 mmol/L (136-145)
[2021-02-18 07:08] LABS: Band 23 % (5-11); Lymphocytes 7 % (21-51); MDiff Complete? YES; Metamyelocyte 2 % (0-0); Monocytes 6 % (0-10); Neutrophil 62 % (42-75)
[2021-02-18] MEDS: Sodium Chloride 0.9% 1,000 ML IV SCH ×2 (09:11→18:16)
[2021-02-18] MEDS ORDERED: Enoxaparin Sodium 30 MG/0.3 ML SYRINGE ONE (09:22)
[2021-02-18] MEDS: Enoxaparin Sodium 30 MG/0.3 ML SYRINGE SC SCH (09:38)
[2021-02-18] MEDS: Diltiazem 125 MG in Sodium Chloride 0.9% 100 ML IVPB SCH (17:27)
[2021-02-18] MEDS: Azithromycin 500 MG in Sodium Chloride 0.9% 250 ML 250 ML IVPB SCH (18:16)
[2021-02-18] MEDS: traMADol HCl 50 MG TAB PO SCH (20:56)
[2021-02-18] MEDS: Temazepam 15 MG CAP PO SCH (20:56)
[2021-02-18] MEDS ORDERED: traMADol HCl 50 MG TAB PO SCH (21:00)
[2021-02-19] MEDS: Sodium Chloride 0.9% 1,000 ML IV SCH ×3 (05:34→23:12)
[2021-02-19 09:17] LABS: Anion Gap 10 mmol/L (10-20); BUN (Urea Nitrogen) 22 mg/dL (9.8-20.1); Calc. Creatinine Clearance 46 mL/min (70-130); Calcium 8.9 mg/dL (7.8-10.44); Carbon Dioxide 20 mmol/L (23-31); Chloride 105 mmol/L (98-107); Glucose 104 mg/dL (83-110); Potassium 3.3 mmol/L (3.5-5.1); Sodium 132 mmol/L (136-145)
[2021-02-19] MEDS: Enoxaparin Sodium 30 MG/0.3 ML SYRINGE SC SCH (09:38)
[2021-02-19] MEDS: GUAIFENESIN SF SOLN 200 MG/10 ML UDCUP PO PRN ×3 (09:39→23:12)
[2021-02-19] MEDS: Metoprolol Tartrate 25 MG TAB PO SCH (09:39)
[2021-02-19 09:45] LABS: Hemoglobin 10.7 g/dL (12.0-16.0); Mean Corpuscular HGB CONC 33.1 g/dL (32.0-36.0); Mean Corpuscular Hemoglobin 31.6 pg (27.0-31.0); Mean Corpuscular Volume 95.4 fL (78.0-98.0); Mean Platelet Volume 5.3 fL (7.4-10.4); Platelet Count 281 thou/uL (130-400); RBC Distribution Width 11.8 % (11.5-14.5); White Blood Cell (WBC) Count 17.9 thou/uL (4.8-10.8)
[2021-02-19 09:49] LABS: Band 14 % (5-11); Eosinophils 5 % (0-10); Lymphocytes 4 % (21-51); MDiff Complete? YES; Monocytes 14 % (0-10); Neutrophil 63 % (42-75); Platelet Morphology Comment Appears Adequate; RBC Morphology Normal; Toxic Granulation SLIGHT; Vacuoles SLIGHT
[2021-02-19] MEDS: Azithromycin 500 MG in Sodium Chloride 0.9% 250 ML 250 ML IVPB SCH (18:28)
[2021-02-19] MEDS: Temazepam 15 MG CAP PO SCH (21:20)
[2021-02-19] MEDS: traMADol HCl 50 MG TAB PO SCH (23:11)
[2021-02-20] MEDS: Cefepime 2 GM in Sodium Chloride 0.9% 100 ML IVPB SCH (01:15)
[2021-02-20 05:16] LABS: Hemoglobin 10.5 g/dL (12.0-16.0); Mean Corpuscular HGB CONC 33.9 g/dL (32.0-36.0); Mean Corpuscular Hemoglobin 32.3 pg (27.0-31.0); Mean Corpuscular Volume 95.4 fL (78.0-98.0); Mean Platelet Volume 5.4 fL (7.4-10.4); Platelet Count 293 thou/uL (130-400); RBC Distribution Width 11.7 % (11.5-14.5); Red Blood Cell (RBC) Count 3.25 mill/uL (4.20-5.40); White Blood Cell (WBC) Count 13.6 thou/uL (4.8-10.8)
[2021-02-20 05:18] LABS: Eosinophils 1 % (0-10); Lymphocytes 3 % (21-51); MDiff Complete? YES; Monocytes 13 % (0-10); Neutrophil 83 % (42-75); Platelet Morphology Comment Appears Adequate
[2021-02-20 05:22] LABS: Anion Gap 9 mmol/L (10-20); BUN (Urea Nitrogen) 14 mg/dL (9.8-20.1); Calc. Creatinine Clearance 50 mL/min (70-130); Calcium 8.5 mg/dL (7.8-10.44); Carbon Dioxide 22 mmol/L (23-31); Chloride 105 mmol/L (98-107); Glucose 105 mg/dL (83-110); Potassium 3.1 mmol/L (3.5-5.1); Sodium 133 mmol/L (136-145)
[2021-02-20] MEDS: Diltiazem 125 MG in Sodium Chloride 0.9% 100 ML IVPB SCH (05:46)
[2021-02-20] MEDS: GUAIFENESIN SF SOLN 200 MG/10 ML UDCUP PO PRN (06:08)
[2021-02-20] MEDS ORDERED: Enoxaparin Sodium 40 MG/0.4 ML SYRINGE SC SCH (09:00)
[2021-02-20] MEDS: Spironolactone 25 MG TAB PO SCH (09:38)
[2021-02-20] MEDS: Metoprolol Tartrate 25 MG TAB PO SCH (09:38)
[2021-02-20] MEDS ORDERED: Aspirin 81 mg Enteric Coated Tablet PO SCH (10:30)
[2021-02-20] MEDS: Sodium Chloride 0.9% 1,000 ML IV SCH (11:36)
[2021-02-20] MEDS: Azithromycin 500 MG in Sodium Chloride 0.9% 250 ML 250 ML IVPB SCH (17:15)
[2021-02-20] MEDS: Temazepam 15 MG CAP PO SCH (20:19)
[2021-02-20] MEDS ORDERED: Apixaban 5 MG TAB PO SCH (21:00)
[2021-02-20] MEDS: traMADol HCl 50 MG TAB PO SCH (21:14)
[2021-02-21] MEDS: Cefepime 2 GM in Sodium Chloride 0.9% 100 ML IVPB SCH (01:11)
[2021-02-21 04:51] LABS: Anion Gap 9 mmol/L (10-20); BUN (Urea Nitrogen) 12 mg/dL (9.8-20.1); Calc. Creatinine Clearance 52 mL/min (70-130); Calcium 8.9 mg/dL (7.8-10.44); Carbon Dioxide 27 mmol/L (23-31); Chloride 101 mmol/L (98-107); Glucose 107 mg/dL (83-110); Potassium 3.1 mmol/L (3.5-5.1); Sodium 134 mmol/L (136-145)
[2021-02-21 04:53] LABS: Band 16 % (5-11); Eosinophils 4 % (0-10); Lymphocytes 14 % (21-51); MDiff Complete? YES; Mean Corpuscular HGB CONC 34.4 g/dL (32.0-36.0); Mean Corpuscular Hemoglobin 32.7 pg (27.0-31.0); Mean Platelet Volume 5.4 fL (7.4-10.4); Monocytes 11 % (0-10); Neutrophil 55 % (42-75); Platelet Count 274 thou/uL (130-400); Platelet Morphology Comment Appears Adequate; RBC Distribution Width 11.8 % (11.5-14.5); Red Blood Cell (RBC) Count 3.36 mill/uL (4.20-5.40); White Blood Cell (WBC) Count 10.4 thou/uL (4.8-10.8)
[2021-02-21] MEDS ORDERED: Apixaban 5 MG TAB PO SCH (07:53)
[2021-02-21] MEDS: Aspirin 81 mg Enteric Coated Tablet PO SCH (08:20)
[2021-02-21] MEDS: Metoprolol Tartrate 25 MG TAB PO SCH (08:20)
[2021-02-21] MEDS: Apixaban 2.5 MG TAB PO SCH ×2 (08:20→20:21)
[2021-02-21] MEDS: Spironolactone 25 MG TAB PO SCH (08:22)
[2021-02-21] MEDS ORDERED: Vancomycin HCl 1.25 GM in Sodium Chloride 0.9% 250 ML 250 ML IVPB SCH (08:30)
[2021-02-21] MEDS: Vancomycin HCl 750 MG in Sodium Chloride 0.9% 250 ML 250 ML IVPB SCH (09:48)
[2021-02-21] MEDS ORDERED: Potassium Chloride 20 MEQ TAB PO SCH (10:45)
[2021-02-21] MEDS: traMADol HCl 50 MG TAB PO SCH (20:18)
[2021-02-21] MEDS: Temazepam 15 MG CAP PO SCH (20:21)
[2021-02-21] MEDS: Acetylcysteine 20% 200 MG/ML 30 ML VIAL INH SCH (20:22)
[2021-02-22] MEDS: Cefepime 2 GM in Sodium Chloride 0.9% 100 ML IVPB SCH (01:26)
[2021-02-22 04:33] LABS: Hemoglobin 10.5 g/dL (12.0-16.0); Mean Corpuscular HGB CONC 33.3 g/dL (32.0-36.0); Mean Corpuscular Hemoglobin 31.6 pg (27.0-31.0); Mean Corpuscular Volume 94.8 fL (78.0-98.0); Mean Platelet Volume 5.2 fL (7.4-10.4); Platelet Count 321 thou/uL (130-400); RBC Distribution Width 11.8 % (11.5-14.5); Red Blood Cell (RBC) Count 3.32 mill/uL (4.20-5.40); White Blood Cell (WBC) Count 10.2 thou/uL (4.8-10.8)
[2021-02-22 04:43] LABS: Anion Gap 10 mmol/L (10-20); BUN (Urea Nitrogen) 11 mg/dL (9.8-20.1); Calc. Creatinine Clearance 55 mL/min (70-130); Carbon Dioxide 31 mmol/L (23-31); Chloride 99 mmol/L (98-107); Glucose 104 mg/dL (83-110); Potassium 3.6 mmol/L (3.5-5.1); Sodium 136 mmol/L (136-145)
[2021-02-22 04:57] LABS: Band 10 % (5-11); Eosinophils 9 % (0-10); Lymphocytes 7 % (21-51); MDiff Complete? YES; Monocytes 19 % (0-10); Neutrophil 53 % (42-75); Platelet Morphology Comment Appears Adequate
[2021-02-22] MEDS: Acetylcysteine 20% 200 MG/ML 30 ML VIAL INH SCH ×2 (07:55→18:56)
[2021-02-22 08:46] LABS: Platelet Count 325 thou/uL (130-400)
[2021-02-22] MEDS: Apixaban 2.5 MG TAB PO SCH ×2 (09:06→20:30)
[2021-02-22] MEDS: Spironolactone 25 MG TAB PO SCH (09:06)
[2021-02-22] MEDS: Metoprolol Tartrate 25 MG TAB PO SCH (09:06)
[2021-02-22] MEDS: Aspirin 81 mg Enteric Coated Tablet PO SCH (09:06)
[2021-02-22] MEDS: Vancomycin HCl 750 MG in Sodium Chloride 0.9% 250 ML 250 ML IVPB SCH (09:07)
[2021-02-22] MEDS: Temazepam 15 MG CAP PO SCH (20:30)
[2021-02-22] MEDS: traMADol HCl 50 MG TAB PO SCH (20:36)
[2021-02-23] MEDS: Cefepime 2 GM in Sodium Chloride 0.9% 100 ML IVPB SCH (01:13)
[2021-02-23 04:40] LABS: #Basophils 0.1 thou/uL (0.0-0.2); #Eosinphils 0.6 thou/uL (0.0-0.7); #Lymphocytes 1.2 thou/uL (1.20-3.40); #Monocytes 1.3 thou/uL (0.11-0.59); #Neutrophils 6.9 thou/uL (1.40-6.50); %Basophils 0.6 % (0.0-1.0); %Eosinophils 6.4 % (0.0-10.0); %Lymphocytes 11.6 % (21.0-51.0); %Monocytes 12.5 % (0.0-10.0); %Neutrophils 68.8 % (42.0-75.0); Hemoglobin 10.8 g/dL (12.0-16.0); Mean Corpuscular HGB CONC 33.3 g/dL (32.0-36.0); Mean Corpuscular Hemoglobin 31.5 pg (27.0-31.0); Mean Corpuscular Volume 94.7 fL (78.0-98.0); Mean Platelet Volume 5.2 fL (7.4-10.4); Platelet Count 351 thou/uL (130-400); RBC Distribution Width 11.7 % (11.5-14.5); Red Blood Cell (RBC) Count 3.41 mill/uL (4.20-5.40)
[2021-02-23 05:00] LABS: Anion Gap 15 mmol/L (10-20); BUN (Urea Nitrogen) 11 mg/dL (9.8-20.1); Calc. Creatinine Clearance 55 mL/min (70-130); Carbon Dioxide 27 mmol/L (23-31); Chloride 94 mmol/L (98-107); Glucose 101 mg/dL (83-110); Potassium 3.5 mmol/L (3.5-5.1); Sodium 132 mmol/L (136-145)
[2021-02-23] MEDS: Aspirin 81 mg Enteric Coated Tablet PO SCH (07:54)
[2021-02-23] MEDS: Spironolactone 25 MG TAB PO SCH (07:54)
[2021-02-23] MEDS: Metoprolol Tartrate 25 MG TAB PO SCH (07:55)
[2021-02-23] MEDS: Apixaban 2.5 MG TAB PO SCH ×2 (07:55→20:38)
[2021-02-23] MEDS: Acetylcysteine 20% 200 MG/ML 30 ML VIAL INH SCH (08:12)
[2021-02-23 08:30] LABS: Vancomycin, Trough 4.7 ug/mL
[2021-02-23] MEDS: Vancomycin 1 GM in Premix Bag 1 BAG IVPB SCH ×2 (10:14→20:38)
[2021-02-23] MEDS: Temazepam 15 MG CAP PO SCH (20:38)
[2021-02-23] MEDS: traMADol HCl 50 MG TAB PO SCH (21:22)
[2021-02-24] MEDS: Cefepime 2 GM in Sodium Chloride 0.9% 100 ML IVPB SCH (00:30)
[2021-02-24 04:17] LABS: #Basophils 0.1 thou/uL (0.0-0.2); #Eosinphils 0.8 thou/uL (0.0-0.7); #Lymphocytes 1.1 thou/uL (1.20-3.40); #Neutrophils 9.4 thou/uL (1.40-6.50); %Basophils 0.6 % (0.0-1.0); %Eosinophils 6.2 % (0.0-10.0); %Lymphocytes 8.8 % (21.0-51.0); %Monocytes 8.4 % (0.0-10.0); Hemoglobin 10.6 g/dL (12.0-16.0); Mean Corpuscular HGB CONC 32.2 g/dL (32.0-36.0); Mean Corpuscular Hemoglobin 30.6 pg (27.0-31.0); Mean Corpuscular Volume 94.9 fL (78.0-98.0); Mean Platelet Volume 5.2 fL (7.4-10.4); Platelet Count 390 thou/uL (130-400); RBC Distribution Width 11.7 % (11.5-14.5); Red Blood Cell (RBC) Count 3.48 mill/uL (4.20-5.40); White Blood Cell (WBC) Count 12.3 thou/uL (4.8-10.8)
[2021-02-24 04:36] LABS: Anion Gap 15 mmol/L (10-20); BUN (Urea Nitrogen) 13 mg/dL (9.8-20.1); Calc. Creatinine Clearance 53 mL/min (70-130); Carbon Dioxide 26 mmol/L (23-31); Chloride 95 mmol/L (98-107); Glucose 105 mg/dL (83-110); Potassium 3.6 mmol/L (3.5-5.1); Sodium 132 mmol/L (136-145)
[2021-02-24] MEDS: Aspirin 81 mg Enteric Coated Tablet PO SCH (08:37)
[2021-02-24] MEDS: Spironolactone 25 MG TAB PO SCH (08:37)
[2021-02-24] MEDS: Metoprolol Tartrate 25 MG TAB PO SCH (08:38)
[2021-02-24] MEDS: Apixaban 2.5 MG TAB PO SCH ×2 (08:38→20:40)
[2021-02-24] MEDS: Vancomycin 1 GM in Premix Bag 1 BAG IVPB SCH ×2 (08:39→20:39)
[2021-02-24 13:32] VITALS: BMI 21.9
[2021-02-24 20:34] LABS: Vancomycin, Trough 20.7 ug/mL
[2021-02-24] MEDS: Temazepam 15 MG CAP PO SCH (20:40)
[2021-02-24] MEDS: traMADol HCl 50 MG TAB PO SCH (20:42)
[2021-02-24] MEDS: Vancomycin HCl 750 MG in Sodium Chloride 0.9% 250 ML 250 ML IVPB SCH (21:36)
[2021-02-25] MEDS: Cefepime 2 GM in Sodium Chloride 0.9% 100 ML IVPB SCH (01:49)
[2021-02-25] MEDS: Apixaban 2.5 MG TAB PO SCH ×2 (08:16→21:42)
[2021-02-25] MEDS: Spironolactone 25 MG TAB PO SCH (08:16)
[2021-02-25] MEDS: Metoprolol Tartrate 25 MG TAB PO SCH (08:18)
[2021-02-25] MEDS: Aspirin 81 mg Enteric Coated Tablet PO SCH (08:18)
[2021-02-25 09:27] LABS: Hemoglobin 10.6 g/dL (12.0-16.0); Platelet Count 428 thou/uL (130-400)
[2021-02-25] MEDS: Vancomycin HCl 750 MG in Sodium Chloride 0.9% 250 ML 250 ML IVPB SCH ×2 (10:23→21:44)
[2021-02-25] MEDS: Temazepam 15 MG CAP PO SCH (21:42)
[2021-02-25] MEDS: traMADol HCl 50 MG TAB PO SCH (22:02)
[2021-02-26] MEDS: Cefepime 2 GM in Sodium Chloride 0.9% 100 ML IVPB SCH (01:20)
[2021-02-26] MEDS: Aspirin 81 mg Enteric Coated Tablet PO SCH (08:25)
[2021-02-26] MEDS: Vancomycin HCl 750 MG in Sodium Chloride 0.9% 250 ML 250 ML IVPB SCH (08:25)
[2021-02-26] MEDS: Apixaban 2.5 MG TAB PO SCH ×2 (08:25→20:26)
[2021-02-26] MEDS: Spironolactone 25 MG TAB PO SCH (08:26)
[2021-02-26] MEDS: Metoprolol Tartrate 25 MG TAB PO SCH (08:26)
[2021-02-26 09:37] LABS: Vancomycin, Trough 37.9 ug/mL
[2021-02-26] MEDS: traMADol HCl 50 MG TAB PO SCH (20:24)
[2021-02-26] MEDS: Temazepam 15 MG CAP PO SCH (20:25)
[2021-02-26 21:03] LABS: Vancomycin, Trough 20.1 ug/mL
[2021-02-27] MEDS: Vancomycin HCl 750 MG in Sodium Chloride 0.9% 250 ML 250 ML IVPB SCH (00:35)
[2021-02-27] MEDS: Cefepime 2 GM in Sodium Chloride 0.9% 100 ML IVPB SCH (01:18)
[2021-02-27] MEDS: Vancomycin 1 GM in Premix Bag 1 BAG IVPB SCH (03:05)
[2021-02-27 05:03] LABS: #Basophils 0.1 thou/uL (0.0-0.2); #Eosinphils 0.9 thou/uL (0.0-0.7); #Lymphocytes 1.2 thou/uL (1.20-3.40); #Monocytes 0.8 thou/uL (0.11-0.59); #Neutrophils 4.8 thou/uL (1.40-6.50); %Basophils 1.2 % (0.0-1.0); %Eosinophils 11.3 % (0.0-10.0); %Lymphocytes 15.9 % (21.0-51.0); %Monocytes 9.9 % (0.0-10.0); %Neutrophils 61.7 % (42.0-75.0); Hemoglobin 10.3 g/dL (12.0-16.0); Mean Corpuscular HGB CONC 32.1 g/dL (32.0-36.0); Mean Corpuscular Hemoglobin 30.3 pg (27.0-31.0); Mean Corpuscular Volume 94.6 fL (78.0-98.0); Mean Platelet Volume 5.4 fL (7.4-10.4); Platelet Count 493 thou/uL (130-400); RBC Distribution Width 11.5 % (11.5-14.5); Red Blood Cell (RBC) Count 3.41 mill/uL (4.20-5.40); White Blood Cell (WBC) Count 7.8 thou/uL (4.8-10.8)
[2021-02-27 05:09] LABS: Anion Gap 11 mmol/L (10-20); BUN (Urea Nitrogen) 14 mg/dL (9.8-20.1); Calc. Creatinine Clearance 47 mL/min (70-130); Calcium 9.5 mg/dL (7.8-10.44); Carbon Dioxide 28 mmol/L (23-31); Chloride 96 mmol/L (98-107); Glucose 137 mg/dL (83-110); Potassium 3.9 mmol/L (3.5-5.1); Sodium 131 mmol/L (136-145)
[2021-02-27] MEDS: Apixaban 2.5 MG TAB PO SCH ×2 (09:01→20:16)
[2021-02-27] MEDS: Aspirin 81 mg Enteric Coated Tablet PO SCH (09:01)
[2021-02-27] MEDS: Spironolactone 25 MG TAB PO SCH (09:02)
[2021-02-27] MEDS: Metoprolol Tartrate 25 MG TAB PO SCH (09:02)
[2021-02-27] MEDS: Temazepam 15 MG CAP PO SCH (20:16)
[2021-02-27] MEDS: traMADol HCl 50 MG TAB PO SCH (21:42)
[2021-02-28] MEDS: Cefepime 2 GM in Sodium Chloride 0.9% 100 ML IVPB SCH (00:41)
[2021-02-28 02:35] LABS: Vancomycin, Random 15.8 ug/mL (See Comment)
[2021-02-28] MEDS: Vancomycin 1 GM in Premix Bag 1 BAG IVPB SCH (03:56)
[2021-02-28] MEDS: Spironolactone 25 MG TAB PO SCH (08:51)
[2021-02-28] MEDS: Aspirin 81 mg Enteric Coated Tablet PO SCH (08:51)
[2021-02-28] MEDS: Apixaban 2.5 MG TAB PO SCH (08:51)
[2021-02-28] MEDS: Metoprolol Tartrate 25 MG TAB PO SCH (08:51)
[2021-02-28 08:58] LABS: Hemoglobin 12.3 g/dL (12.0-16.0); Platelet Count 594 thou/uL (130-400)
[2021-02-28] MEDS ORDERED: Vancomycin 1 GM in Premix Bag 1 BAG IVPB SCH (09:00)
[2021-02-28 15:06] VITALS: BP 146/63; TEMP 97.9
== END 2021-02-28 15:15 | disposition home health service (06) | DRG 871 ==
LOC: ERS 16:54 → ERHOLD 20:04 → 2NO 02-18 16:54
PROVIDERS: ADMIT Student in an Organized Health Care Education/Training Program; ATTEND Internal Medicine
PROC: 02HV33Z Insertion of Infusion Device into Superior Vena Cava, Percutaneous Approach (ICD-10-PCS; principal; 2021-02-23)
PROC: B548ZZA Ultrasonography of Superior Vena Cava, Guidance (ICD-10-PCS; 2021-02-23)
DX: A41.02 Sepsis due to Methicillin resistant Staphylococcus aureus (principal); J96.01 Acute respiratory failure with hypoxia; J18.9 Pneumonia, unspecified organism; C85.90 Non-Hodgkin lymphoma, unspecified, unspecified site; Z66 Do not resuscitate; Z20.822 Contact with and (suspected) exposure to COVID-19; E87.1 Hypo-osmolality and hyponatremia; N39.0 Urinary tract infection, site not specified; I48.91 Unspecified atrial fibrillation; K52.9 Noninfective gastroenteritis and colitis, unspecified; B96.20 Unspecified Escherichia coli [E. coli] as the cause of diseases classified elsewhere; E87.6 Hypokalemia; N18.30 Chronic kidney disease, stage 3 unspecified; A41.51 Sepsis due to Escherichia coli [E. coli]; Z90.49 Acquired absence of other specified parts of digestive tract; Z90.710 Acquired absence of both cervix and uterus; Z79.01 Long term (current) use of anticoagulants; Z79.82 Long term (current) use of aspirin; Z79.899 Other long term (current) drug therapy; Z63.4 Disappearance and death of family member
CPT/HCPCS: 36415; 36569; 71045; 71046; 71275; 80048; 80053; 80202; 81003; 81015; 82565; 83605; 83735; 83880; 84484; 85014; 85018; 85025; 85049; 87040; 87077; 87086; 87149; 87186; 87324; 87449; 87635; 93005; 93306; 94640; 94760; 96365; 96367; 96376; C1751; J0132; J0456; J0692; J0696; J1644; J1650; J2405; J3370; J3490; J7050; J7620; U0003; U0005

== ENCOUNTER 2021-04-07 09:00 | Outpatient (CLI) | payer MEDICARE | END 2021-04-07 09:01 | disposition home or self-care (01) | LOC: BICRAD 09:00 | PROVIDERS: ATTEND Internal Medicine Critical Care Medicine | DX: R06.00 Dyspnea, unspecified (principal); R91.8 Other nonspecific abnormal finding of lung field | CPT/HCPCS: 71046 ==

== ENCOUNTER 2022-04-22 08:45 | Outpatient (CLI) | payer MEDICARE | END 2022-04-22 08:46 | disposition home or self-care (01) | LOC: PET 08:45 | PROVIDERS: ATTEND Internal Medicine Hematology & Oncology | DX: C85.88 Other specified types of non-Hodgkin lymphoma, lymph nodes of multiple sites (principal) | CPT/HCPCS: 78815; A9552 ==

== ENCOUNTER 2022-05-04 17:16 | Inpatient (IN) | payer MEDICARE ==
[2022-05-04 18:12] LABS: Hemoglobin 12.1 g/dL (12.0-16.0); Mean Corpuscular HGB CONC 32.9 g/dL (32.0-36.0); Mean Corpuscular Hemoglobin 31.5 pg (27.0-31.0); Mean Corpuscular Volume 95.7 fL (78.0-98.0); Mean Platelet Volume 5.4 fL (7.4-10.4); Platelet Count 363 thou/uL (130-400); RBC Distribution Width 11.1 % (11.5-14.5); Red Blood Cell (RBC) Count 3.83 mill/uL (4.20-5.40)
[2022-05-04 18:21] LABS: ALT (SGPT) 16 U/L (8-55); AST (SGOT) 15 U/L (5-34); Albumin 3.9 g/dL (3.4-4.8); Alkaline Phosphatase 106 U/L (40-110); Anion Gap 12 mmol/L (10-20); BUN (Urea Nitrogen) 34 mg/dL (9.8-20.1); Bilirubin, Total 0.4 mg/dL (0.2-1.2); Calc. Creatinine Clearance 0 mL/min (70-130); Carbon Dioxide 26 mmol/L (23-31); Chloride 100 mmol/L (98-107); Globulin 2.5 g/dL (2.4-3.5); Glucose 113 mg/dL (83-110); Potassium 4.3 mmol/L (3.5-5.1); Protein, Total 6.4 g/dL (5.8-8.1); Sodium 134 mmol/L (136-145)
[2022-05-04 18:32] LABS: Band 1 % (5-11); Calcium 14.6 mg/dL (7.8-10.44); Eosinophils 6 % (0-10); Lymphocytes 26 % (21-51); MDiff Complete? YES; Monocytes 12 % (0-10); Neutrophil 55 % (42-75); Platelet Morphology Comment Appears Adequate; RBC Morphology Normal; White Blood Cell (WBC) Count 5.3 thou/uL (4.8-10.8)
[2022-05-04 19:26] LABS: Bacteria/HPF 4+ HPF (None Seen); Bilirubin Negative (Negative); Blood, Urine 2+ (Negative); Clarity Extra Turbid (Clear); Glucose, Urine (Dipstick) Normal (Negative); Ketone, Urine Negative (Negative); Leukocyte 500 Leu/uL (Negative); Nitrite 2+ (Negative); Protein, Urine (Dipstick) 50 mg/dL (Neg-Trace); RBC/HPF Greater than 50 HPF (0-3); Renal Epithelial 0-3 HPF (None Seen); Specific Gravity, Urine 1.012 (1.002-1.036); Urobilinogen Normal mg/dL (Less than 2); WBC/HPF Greater than 50 HPF (0-3)
[2022-05-04] MEDS ORDERED: cefTRIAXone\\ROCEPHIN 1 GM VIAL ONE (19:57)
[2022-05-04] MEDS ORDERED: Ondansetron ODT 4 MG TAB PO PRN (21:28)
[2022-05-04] MEDS ORDERED: hydrALAZINE 20 MG/ML VIAL SLOW IVP PRN (21:28)
[2022-05-04] MEDS ORDERED: Acetaminophen 500 MG TAB PO PRN (21:28)
[2022-05-04] MEDS ORDERED: Calcitonin,Synthetic 200 UNITS/ML MDV SC SCH (22:00)
[2022-05-04] MEDS ORDERED: Temazepam 15 MG CAP PO SCH (23:00)
[2022-05-04] MEDS: Sodium Chloride 0.9% 1,000 ML IV SCH (23:32)
[2022-05-04 23:45] VITALS: BMI 21.3
[2022-05-05] MEDS: Calcitonin,Synthetic 200 UNITS/ML MDV SC SCH (02:53)
[2022-05-05] MEDS: Ondansetron PF 4 MG/2 ML Vial IVP PRN ×4 (03:14→21:26)
[2022-05-05] MEDS: Sodium Chloride 0.9% 1,000 ML IV SCH ×3 (04:56→21:26)
[2022-05-05 05:37] LABS: Anion Gap 12 mmol/L (10-20); BUN (Urea Nitrogen) 30 mg/dL (9.8-20.1); Calc. Creatinine Clearance 18 mL/min (70-130); Carbon Dioxide 23 mmol/L (23-31); Chloride 105 mmol/L (98-107); Glucose 108 mg/dL (83-110); Magnesium 1.5 mg/dL (1.6-2.6); Potassium 3.8 mmol/L (3.5-5.1); Sodium 136 mmol/L (136-145)
[2022-05-05 05:39] LABS: Phosphorus 3.9 mg/dL (2.3-4.7)
[2022-05-05 05:48] LABS: Calcium 12.6 mg/dL (7.8-10.44)
[2022-05-05 05:59] LABS: Band 3 % (5-11); Eosinophils 2 % (0-10); Hemoglobin 11.6 g/dL (12.0-16.0); Lymphocytes 16 % (21-51); MDiff Complete? YES; Mean Corpuscular HGB CONC 34.2 g/dL (32.0-36.0); Mean Corpuscular Hemoglobin 32.5 pg (27.0-31.0); Mean Corpuscular Volume 95.1 fL (78.0-98.0); Mean Platelet Volume 5.3 fL (7.4-10.4); Monocytes 15 % (0-10); Neutrophil 64 % (42-75); Platelet Count 323 thou/uL (130-400); Platelet Morphology Comment Appears Adequate; RBC Distribution Width 11.1 % (11.5-14.5); RBC Morphology Normal; Red Blood Cell (RBC) Count 3.56 mill/uL (4.20-5.40)
[2022-05-05] MEDS: Famotidine 20 MG TAB PO SCH (08:23)
[2022-05-05] MEDS: Apixaban 2.5 MG TAB PO SCH ×2 (08:24→21:25)
[2022-05-05] MEDS ORDERED: Zoledronic Acid 4 MG in Sodium Chloride 0.9% 100 ML IVPB SCH (09:00)
[2022-05-05] MEDS ORDERED: Magnesium 2 GM/50 ML(in water) 2 GM in Premix Bag 1 BAG IVPB SCH (09:00)
[2022-05-05] MEDS ORDERED: Calcitonin,Synthetic 200 UNITS/ML MDV SC SCH (15:00)
[2022-05-05] MEDS ORDERED: ADMIXTURE FEE SC SCH (16:45)
[2022-05-05] MEDS ORDERED: CALCITONIN SALMON SYNTHETIC SC SCH (16:45)
[2022-05-05] MEDS ORDERED: cefTRIAXone\\ROCEPHIN 1 GM in Sodium Chloride 0.9% 100 ML IVPB SCH (20:00)
[2022-05-05] MEDS ORDERED: traMADol HCl 50 MG TAB PO SCH (21:00)
[2022-05-05] MEDS ORDERED: Temazepam 15 MG CAP PO SCH (21:00)
[2022-05-06] MEDS: Calcitonin,Synthetic 200 UNITS/ML MDV SC SCH (04:09)
[2022-05-06 04:58] LABS: Anion Gap 10 mmol/L (10-20); BUN (Urea Nitrogen) 19 mg/dL (9.8-20.1); Calc. Creatinine Clearance 22 mL/min (70-130); Calcium 9.8 mg/dL (7.8-10.44); Carbon Dioxide 23 mmol/L (23-31); Chloride 108 mmol/L (98-107); Glucose 95 mg/dL (83-110); Potassium 3.6 mmol/L (3.5-5.1); Sodium 137 mmol/L (136-145)
[2022-05-06] MEDS: Sodium Chloride 0.9% 1,000 ML IV SCH (06:48)
[2022-05-06] MEDS: Famotidine 20 MG TAB PO SCH (09:15)
[2022-05-06] MEDS: Apixaban 2.5 MG TAB PO SCH ×2 (09:15→09:17)
[2022-05-06 12:29] VITALS: BP 144/63; TEMP 97.4
== END 2022-05-06 13:30 | disposition home or self-care (01) | DRG 641 ==
LOC: ERS 17:16 → 2NO 20:23
PROVIDERS: ADMIT Internal Medicine; ATTEND Internal Medicine
DX: E83.52 Hypercalcemia (principal); N39.0 Urinary tract infection, site not specified; N17.9 Acute kidney failure, unspecified; N18.4 Chronic kidney disease, stage 4 (severe); I48.20 Chronic atrial fibrillation, unspecified; C85.88 Other specified types of non-Hodgkin lymphoma, lymph nodes of multiple sites; Z20.822 Contact with and (suspected) exposure to COVID-19; B96.20 Unspecified Escherichia coli [E. coli] as the cause of diseases classified elsewhere; E83.42 Hypomagnesemia; Z79.01 Long term (current) use of anticoagulants; Z90.49 Acquired absence of other specified parts of digestive tract; Z90.710 Acquired absence of both cervix and uterus; Z79.899 Other long term (current) drug therapy
CPT/HCPCS: 36415; 71045; 80048; 80053; 81003; 81015; 82248; 82306; 82607; 82728; 82746; 83615; 83735; 84100; 84165; 84443; 84550; 85025; 87077; 87086; 87186; 93005; J0630; J0696; J2405; J3475; J3489; J3490; J7050; U0003; U0005

== ENCOUNTER 2022-07-30 08:45 | Outpatient (CLI) | payer MEDICARE | END 2022-07-30 08:46 | disposition home or self-care (01) | LOC: PET 08:45 | PROVIDERS: ATTEND Internal Medicine Hematology & Oncology | DX: C85.88 Other specified types of non-Hodgkin lymphoma, lymph nodes of multiple sites (principal); E83.52 Hypercalcemia | CPT/HCPCS: 78815; A9552 ==

== ENCOUNTER 2023-01-31 21:18 | Inpatient (IN) | payer MEDICARE ==
[2023-02-01] MEDS ORDERED: Ipratropium/Albuterol 3 ML NEB NEB PRN (01:18)
[2023-02-01] MEDS ORDERED: Ondansetron PF 4 MG/2 ML Vial IVP PRN (01:18)
[2023-02-01] MEDS ORDERED: Ondansetron ODT 4 MG TAB PO PRN (01:18)
[2023-02-01] MEDS ORDERED: Acetaminophen 500 MG TAB PO SCH (02:00)
[2023-02-01] MEDS ORDERED: Sodium Chloride 0.9% 1,000 ML IV SCH (02:00)
[2023-02-01 02:36] LABS: Hemoglobin 11.9 g/dL (12.0-16.0); Mean Corpuscular HGB CONC 33.4 g/dL (32.0-36.0); Mean Corpuscular Hemoglobin 30.7 pg (27.0-31.0); Mean Corpuscular Volume 91.8 fl (78.0-98.0); Mean Platelet Volume 5.3 fL (7.4-10.4); Platelet Count 202 10x3/uL (130-400); RBC Distribution Width 12.2 % (11.5-14.5); Red Blood Cell (RBC) Count 3.89 mill/uL (4.20-5.40); White Blood Cell (WBC) Count 20.8 10x3/uL (4.8-10.8)
[2023-02-01 03:00] VITALS: BMI 22.1
[2023-02-01 03:05] LABS: Band 11 % (5-11); Lymphocytes 5 % (21-51); MDiff Complete? YES; Metamyelocyte 1 % (0-0); Monocytes 3 % (0-10); Myelocyte 1 % (0-0); Neutrophil 79 % (42-75); Platelet Morphology Comment Appears Adequate; Polychromasia SLIGHT = 2-3 cells (100X) (0-2/hpf); Vacuoles SLIGHT
[2023-02-01 03:18] LABS: ALT (SGPT) 17 U/L (8-55); AST (SGOT) 26 U/L (5-34); Albumin 3.1 g/dL (3.4-4.8); Alkaline Phosphatase 143 U/L (40-110); Anion Gap 16 mmol/L (10-20); BUN (Urea Nitrogen) 22 mg/dL (9.8-20.1); Bilirubin, Total 1.2 mg/dL (0.2-1.2); Calc. Creatinine Clearance 29 mL/min (70-130); Calcium 8.4 mg/dL (7.8-10.44); Carbon Dioxide 18 mmol/L (23-31); Chloride 109 mmol/L (98-107); Estimated GFR 42; Globulin 2.9 g/dL (2.4-3.5); Glucose 124 mg/dL (83-110); Potassium 3.9 mmol/L (3.5-5.1); Sodium 139 mmol/L (136-145)
[2023-02-01] MEDS ORDERED: Sodium Chloride 0.9% 500 ML IV SCH (04:00)
[2023-02-01] MEDS ORDERED: Digoxin 0.5 MG/2 ML AMP SLOW IVP SCH (04:15)
[2023-02-01] MEDS ORDERED: Digoxin 0.5 MG/2 ML AMP ONE (04:15)
[2023-02-01 04:21] LABS: Magnesium 1.6 mg/dL (1.6-2.6)
[2023-02-01 04:23] LABS: Phosphorus 1.5 mg/dL (2.3-4.7)
[2023-02-01] MEDS ORDERED: Magnesium 5 GM/10 ML VIAL ONE (04:24)
[2023-02-01] MEDS ORDERED: Ketorolac Tromethamine 30 MG/ML VIAL ONE (04:26)
[2023-02-01] MEDS ORDERED: Metoprolol Tartrate 5 MG/5 ML VIAL ONE (04:27)
[2023-02-01] MEDS ORDERED: Electrolyte Replacement Protocol 1 EACH FS SCH (05:00)
[2023-02-01] MEDS ORDERED: PHOS-NAK 1 PKT PACK PO SCH (05:00)
[2023-02-01] MEDS ORDERED: Magnesium 2 GM/50 ML(in water) 2 GM in Premix Bag 1 BAG IVPB SCH (05:00)
[2023-02-01] MEDS ORDERED: Diltiazem 125 MG in Sodium Chloride 0.9% 100 ML IVPB SCH (05:00)
[2023-02-01] MEDS: Levothyroxine Sodium 25 MCG TAB PO SCH (05:48)
[2023-02-01] MEDS: Metoprolol Tartrate 25 MG TAB PO SCH ×2 (08:50→21:18)
[2023-02-01] MEDS: Cefepime 1 GM in Sodium Chloride 0.9% 100 ML IVPB SCH ×2 (08:52→21:19)
[2023-02-01 10:44] LABS: Magnesium 2.4 mg/dL (1.6-2.6)
[2023-02-01 11:06] LABS: CKMB 3.7 ng/mL (0-6.6)
[2023-02-01] MEDS ORDERED: Bacitracin Zinc Ointment 30 gm TUBE ONE (11:09)
[2023-02-01] MEDS ORDERED: Bupivacaine PF 0.5% 30 ML VIAL ONE (11:09)
[2023-02-01] MEDS ORDERED: Neomycin-Polymyxin 1 ML AMP ONE (11:09)
[2023-02-01] MEDS ORDERED: D5 1/2 NS w/20 mEq KCL 1,000 ML IV SCH (18:00)
[2023-02-01] MEDS: Acetaminophen 325 MG TAB PO PRN (18:30)
[2023-02-01] MEDS ORDERED: Ipratropium Bromide 2.5 ml Neb NEB PRN (18:34)
[2023-02-01] MEDS: Budesonide 0.25 MG/2 ML NEB ONE ×2 (18:39→18:51)
[2023-02-01] MEDS ORDERED: Budesonide 0.5 MG/2 ML NEB NEB SCH (18:45)
[2023-02-01] MEDS: Ipratropium Bromide 2.5 ml Neb NEB SCH ×2 (18:52→23:36)
[2023-02-01] MEDS: Vancomycin HCl 500 MG in Sodium Chloride 0.9% 100 ML IVPB SCH (21:18)
[2023-02-01 23:49] LABS: Campy jejuni + coli by PCR Negative (Negative); STEC Shiga Toxin 1+2 Negative (Negative); Salmonella spp. by PCR Negative (Negative); Shigella spp + EIEC by PCR Negative (Negative)
[2023-02-02] MEDS: Levothyroxine Sodium 25 MCG TAB PO SCH (05:33)
[2023-02-02 06:24] LABS: Hemoglobin 10.3 g/dL (12.0-16.0); Mean Corpuscular HGB CONC 32.4 g/dL (32.0-36.0); Mean Corpuscular Hemoglobin 30.3 pg (27.0-31.0); Mean Corpuscular Volume 93.4 fl (78.0-98.0); Mean Platelet Volume 5.8 fL (7.4-10.4); Platelet Count 202 10x3/uL (130-400); RBC Distribution Width 12.7 % (11.5-14.5); Red Blood Cell (RBC) Count 3.41 mill/uL (4.20-5.40); White Blood Cell (WBC) Count 25.9 10x3/uL (4.8-10.8)
[2023-02-02] MEDS: Acetaminophen 325 MG TAB PO PRN ×2 (06:40→16:41)
[2023-02-02 06:47] LABS: ALT (SGPT) 23 U/L (8-55); AST (SGOT) 31 U/L (5-34); Albumin 2.9 g/dL (3.4-4.8); Alkaline Phosphatase 130 U/L (40-110); Anion Gap 13 mmol/L (10-20); BUN (Urea Nitrogen) 30 mg/dL (9.8-20.1); Bilirubin, Total 0.6 mg/dL (0.2-1.2); Calc. Creatinine Clearance 35 mL/min (70-130); Calcium 7.7 mg/dL (7.8-10.44); Carbon Dioxide 14 mmol/L (23-31); Chloride 110 mmol/L (98-107); Estimated GFR 54; Globulin 2.5 g/dL (2.4-3.5); Glucose 111 mg/dL (83-110); Magnesium 2.1 mg/dL (1.6-2.6); Potassium 3.6 mmol/L (3.5-5.1); Protein, Total 5.4 g/dL (5.8-8.1); Sodium 133 mmol/L (136-145)
[2023-02-02 06:49] LABS: Phosphorus 2.2 mg/dL (2.3-4.7)
[2023-02-02 06:58] LABS: Band 3 % (5-11); Lymphocytes 1 % (21-51); MDiff Complete? YES; Monocytes 1 % (0-10); Neutrophil 95 % (42-75); Platelet Morphology Comment Appears Adequate; Polychromasia SLIGHT = 2-3 cells (100X) (0-2/hpf); Tear Drops SLIGHT = 2-5 cells (100X) (0-1/hpf)
[2023-02-02] MEDS: Budesonide 0.5 MG/2 ML NEB NEB SCH ×2 (07:57→20:28)
[2023-02-02] MEDS: Ipratropium Bromide 2.5 ml Neb NEB SCH ×2 (07:59→20:27)
[2023-02-02] MEDS ORDERED: Potassium Chloride 20 MEQ in Lactated Ringer's 1,000 ML IV SCH (08:30)
[2023-02-02] MEDS ORDERED: Iopamidol-370 76% 500 ML MDV (1 ML CHARGE) ONE (09:17)
[2023-02-02] MEDS: Metoprolol Tartrate 25 MG TAB PO SCH ×2 (09:20→22:25)
[2023-02-02] MEDS: Cefepime 1 GM in Sodium Chloride 0.9% 100 ML IVPB SCH ×2 (09:21→23:54)
[2023-02-02] MEDS ORDERED: Magnevist 469MG/ML 20 ML VIAL ONE (09:26)
[2023-02-02] MEDS ORDERED: Aspirin 81 mg Enteric Coated Tablet PO SCH (10:15)
[2023-02-02 11:47] LABS: Hemoglobin A1c 5.4 % (4.0-6.0)
[2023-02-02 11:48] LABS: Cardiac Risk 5.8 (Less than 4.5)
[2023-02-02 17:18] LABS: Anion Gap 16 mmol/L (10-20); BUN (Urea Nitrogen) 32 mg/dL (9.8-20.1); Calc. Creatinine Clearance 37 mL/min (70-130); Calcium 8.3 mg/dL (7.8-10.44); Carbon Dioxide 14 mmol/L (23-31); Chloride 110 mmol/L (98-107); Estimated GFR 57; Glucose 129 mg/dL (83-110); Sodium 136 mmol/L (136-145)
[2023-02-02] MEDS ORDERED: Potassium Chloride 20 MEQ TAB PO SCH (18:45)
[2023-02-02] MEDS: Sodium Bicarbonate 150 MEQ in Dextrose 5% in Water 1,000 ML IV SCH (20:21)
[2023-02-02 20:30] LABS: Vancomycin, Trough 3.6 ug/mL
[2023-02-02] MEDS ORDERED: levETIRAcetam 500 MG/5 ML VIAL SLOW IVP SCH (21:00)
[2023-02-02] MEDS ORDERED: levETIRAcetam in NS 750 MG in Premix Bag 1 BAG IVPB SCH (21:00)
[2023-02-02] MEDS: Vancomycin HCl 500 MG in Sodium Chloride 0.9% 100 ML IVPB SCH (22:24)
[2023-02-02] MEDS: levETIRAcetam 500 MG TAB PO SCH (22:25)
[2023-02-02] MEDS: Atorvastatin Calcium 40 MG TAB PO SCH (22:25)
[2023-02-03] MEDS: Vancomycin HCl 500 MG in Sodium Chloride 0.9% 100 ML IVPB SCH ×4 (00:34→22:49)
[2023-02-03] MEDS: Temazepam 15 MG CAP PO PRN ×2 (01:54→20:50)
[2023-02-03] MEDS: Acetaminophen 325 MG TAB PO PRN ×2 (01:54→20:50)
[2023-02-03] MEDS: Levothyroxine Sodium 25 MCG TAB PO SCH (05:45)
[2023-02-03 06:17] LABS: Hemoglobin 9.7 g/dL (12.0-16.0); Mean Corpuscular HGB CONC 32.5 g/dL (32.0-36.0); Mean Corpuscular Hemoglobin 29.6 pg (27.0-31.0); Mean Corpuscular Volume 91.1 fl (78.0-98.0); Mean Platelet Volume 5.9 fL (7.4-10.4); Platelet Count 186 10x3/uL (130-400); RBC Distribution Width 12.7 % (11.5-14.5); Red Blood Cell (RBC) Count 3.28 mill/uL (4.20-5.40); White Blood Cell (WBC) Count 22.9 10x3/uL (4.8-10.8)
[2023-02-03 06:39] LABS: Phosphorus 1.2 mg/dL (2.3-4.7)
[2023-02-03 06:50] LABS: Band 1 % (5-11); Eosinophils 1 % (0-10); Lymphocytes 1 % (21-51); MDiff Complete? YES; Monocytes 2 % (0-10); Neutrophil 95 % (42-75); Platelet Morphology Comment Appears Adequate; Polychromasia SLIGHT = 2-3 cells (100X) (0-2/hpf)
[2023-02-03 06:58] LABS: ALT (SGPT) 25 U/L (8-55); AST (SGOT) 38 U/L (5-34); Albumin 2.3 g/dL (3.4-4.8); Alkaline Phosphatase 140 U/L (40-110); Anion Gap 15 mmol/L (10-20); BUN (Urea Nitrogen) 29 mg/dL (9.8-20.1); Bilirubin, Total 0.7 mg/dL (0.2-1.2); Calc. Creatinine Clearance 42 mL/min (70-130); Calcium 7.7 mg/dL (7.8-10.44); Carbon Dioxide 20 mmol/L (23-31); Chloride 108 mmol/L (98-107); Estimated GFR 66; Globulin 2.2 g/dL (2.4-3.5); Glucose 131 mg/dL (83-110); Potassium 3.9 mmol/L (3.5-5.1); Protein, Total 4.5 g/dL (5.8-8.1); Sodium 139 mmol/L (136-145)
[2023-02-03] MEDS: Budesonide 0.5 MG/2 ML NEB NEB SCH ×2 (07:04→20:08)
[2023-02-03] MEDS: Ipratropium Bromide 2.5 ml Neb NEB SCH ×3 (07:07→23:33)
[2023-02-03] MEDS: Doxycycline 100 MG in Sodium Chloride 0.9% 100 ML IVPB SCH ×4 (08:17→20:45)
[2023-02-03] MEDS: Cefepime 1 GM in Sodium Chloride 0.9% 100 ML IVPB SCH ×2 (08:17→22:08)
[2023-02-03] MEDS: levETIRAcetam 500 MG TAB PO SCH ×2 (08:17→20:51)
[2023-02-03] MEDS: PHOS-NAK 1 PKT PACK PO SCH ×4 (08:17→22:07)
[2023-02-03] MEDS: Metoprolol Tartrate 25 MG TAB PO SCH ×2 (08:17→20:50)
[2023-02-03] MEDS ORDERED: Potassium Phosphate 30 MMOL in Sodium Chloride 0.9% 250 ML 250 ML IVPB SCH (08:30)
[2023-02-03] MEDS ORDERED: Aspirin 81 mg Enteric Coated Tablet PO SCH (09:00)
[2023-02-03] MEDS: Sodium Bicarbonate 150 MEQ in Dextrose 5% in Water 1,000 ML IV SCH (10:00)
[2023-02-03] MEDS: D5W-AA 4.25% with LYTES 1,000 ML IV SCH (16:32)
[2023-02-03] MEDS: Atorvastatin Calcium 40 MG TAB PO SCH (20:51)
[2023-02-04] MEDS: Levothyroxine Sodium 25 MCG TAB PO SCH (05:54)
[2023-02-04] MEDS: Budesonide 0.5 MG/2 ML NEB NEB SCH ×2 (06:50→19:57)
[2023-02-04] MEDS: Ipratropium Bromide 2.5 ml Neb NEB SCH ×3 (06:55→19:57)
[2023-02-04 08:25] LABS: Band 4 % (5-11); Eosinophils 1 % (0-10); Hemoglobin 10.7 g/dL (12.0-16.0); Lymphocytes 5 % (21-51); MDiff Complete? YES; Mean Corpuscular HGB CONC 33.5 g/dL (32.0-36.0); Mean Corpuscular Hemoglobin 30.7 pg (27.0-31.0); Mean Corpuscular Volume 91.6 fl (78.0-98.0); Mean Platelet Volume 6.2 fL (7.4-10.4); Monocytes 9 % (0-10); Neutrophil 79 % (42-75); Platelet Count 222 10x3/uL (130-400); Platelet Morphology Comment Appears Adequate; Polychromasia SLIGHT = 2-3 cells (100X) (0-2/hpf); RBC Distribution Width 12.9 % (11.5-14.5); Reactive Lymphocytes 2 % (0-10); Small Platelets SLIGHT; White Blood Cell (WBC) Count 13.1 10x3/uL (4.8-10.8)
[2023-02-04 08:28] LABS: Vancomycin, Trough 10.5 ug/mL
[2023-02-04] MEDS: Cefepime 1 GM in Sodium Chloride 0.9% 100 ML IVPB SCH ×2 (08:29→20:50)
[2023-02-04 08:35] LABS: ALT (SGPT) 24 U/L (8-55); AST (SGOT) 25 U/L (5-34); Albumin 2.5 g/dL (3.4-4.8); Alkaline Phosphatase 147 U/L (40-110); Anion Gap 14 mmol/L (10-20); BUN (Urea Nitrogen) 24 mg/dL (9.8-20.1); Bilirubin, Total 0.7 mg/dL (0.2-1.2); Calc. Creatinine Clearance 48 mL/min (70-130); Calcium 8.3 mg/dL (7.8-10.44); Carbon Dioxide 23 mmol/L (23-31); Chloride 106 mmol/L (98-107); Estimated GFR 77; Globulin 2.7 g/dL (2.4-3.5); Glucose 113 mg/dL (83-110); Phosphorus 2.8 mg/dL (2.3-4.7); Potassium 3.6 mmol/L (3.5-5.1); Protein, Total 5.2 g/dL (5.8-8.1); Sodium 139 mmol/L (136-145)
[2023-02-04] MEDS: Metoprolol Tartrate 25 MG TAB PO SCH ×2 (09:13→20:47)
[2023-02-04] MEDS: Doxycycline 100 MG in Sodium Chloride 0.9% 100 ML IVPB SCH ×2 (09:15→20:49)
[2023-02-04] MEDS: levETIRAcetam 500 MG TAB PO SCH ×2 (09:15→20:48)
[2023-02-04] MEDS: Vancomycin HCl 500 MG in Sodium Chloride 0.9% 100 ML IVPB SCH (09:45)
[2023-02-04] MEDS: Vancomycin HCl 750 MG in Sodium Chloride 0.9% 250 ML 250 ML IVPB SCH ×2 (11:06→20:53)
[2023-02-04] MEDS: D5W-AA 4.25% with LYTES 1,000 ML IV SCH (11:12)
[2023-02-04] MEDS: Acetaminophen 325 MG TAB PO PRN (12:28)
[2023-02-04] MEDS: Saccharomyces boulardii 250 MG CAP PO SCH (14:07)
[2023-02-04] MEDS: Folic Acid 1 MG TAB PO SCH (20:47)
[2023-02-04] MEDS: Multivit, Therapeutic 1 TAB PO SCH (20:47)
[2023-02-04] MEDS: guaiFENesin ER 600 MG TAB PO SCH (20:47)
[2023-02-04] MEDS: Atorvastatin Calcium 40 MG TAB PO SCH (20:47)
[2023-02-04] MEDS: pyridOXINE 50 MG (B6) TAB PO SCH (20:47)
[2023-02-04] MEDS: Cyanocobalamin (Vitamin B-12) 1,000 MCG TAB PO SCH (20:49)
[2023-02-05] MEDS: Ipratropium Bromide 2.5 ml Neb NEB SCH ×4 (01:33→18:18)
[2023-02-05] MEDS: D5W-AA 4.25% with LYTES 1,000 ML IV SCH ×2 (05:28→21:19)
[2023-02-05] MEDS: Levothyroxine Sodium 25 MCG TAB PO SCH (05:31)
[2023-02-05 06:09] LABS: Albumin 2.4 g/dL (3.4-4.8); Anion Gap 12 mmol/L (10-20); BUN (Urea Nitrogen) 25 mg/dL (9.8-20.1); BUN/Creatinine Ratio 35.21; Calc. Creatinine Clearance 50 mL/min (70-130); Calcium 8.4 mg/dL (7.8-10.44); Carbon Dioxide 22 mmol/L (23-31); Chloride 105 mmol/L (98-107); Estimated GFR 81; Glucose 106 mg/dL (83-110); Magnesium 1.8 mg/dL (1.6-2.6); Phosphorus 2.5 mg/dL (2.3-4.7); Potassium 3.4 mmol/L (3.5-5.1); Sodium 136 mmol/L (136-145)
[2023-02-05 06:14] LABS: Band 12 % (5-11); Hemoglobin 9.5 g/dL (12.0-16.0); Hypochromia SLIGHT = 6-15 cells (100X) (0-5/hpf); Lymphocytes 7 % (21-51); MDiff Complete? YES; Mean Corpuscular HGB CONC 33.6 g/dL (32.0-36.0); Mean Corpuscular Hemoglobin 30.6 pg (27.0-31.0); Mean Corpuscular Volume 91.1 fl (78.0-98.0); Mean Platelet Volume 6.1 fL (7.4-10.4); Monocytes 12 % (0-10); Neutrophil 69 % (42-75); Platelet Count 173 10x3/uL (130-400); Platelet Morphology Comment Appears Adequate; White Blood Cell (WBC) Count 10.4 10x3/uL (4.8-10.8)
[2023-02-05] MEDS: Budesonide 0.5 MG/2 ML NEB NEB SCH ×2 (07:33→18:17)
[2023-02-05] MEDS ORDERED: Magnesium 2 GM/50 ML(in water) 2 GM in Premix Bag 1 BAG IVPB SCH (08:00)
[2023-02-05] MEDS ORDERED: Potassium Chloride 20 MEQ TAB PO SCH (08:00)
[2023-02-05] MEDS: PHOS-NAK 1 PKT PACK PO SCH (08:44)
[2023-02-05] MEDS: Metoprolol Tartrate 25 MG TAB PO SCH ×2 (08:44→21:18)
[2023-02-05] MEDS: guaiFENesin ER 600 MG TAB PO SCH ×2 (08:44→21:18)
[2023-02-05] MEDS: levETIRAcetam 500 MG TAB PO SCH ×2 (08:46→21:17)
[2023-02-05] MEDS: Cefepime 1 GM in Sodium Chloride 0.9% 100 ML IVPB SCH ×2 (09:36→21:16)
[2023-02-05] MEDS: Doxycycline 100 MG in Sodium Chloride 0.9% 100 ML IVPB SCH ×2 (10:11→21:18)
[2023-02-05] MEDS: Potassium Chloride 20 MEQ in Premix Bag 1 BAG IVPB SCH ×2 (10:12→12:12)
[2023-02-05] MEDS: Vancomycin HCl 750 MG in Sodium Chloride 0.9% 250 ML 250 ML IVPB SCH ×2 (11:24→21:18)
[2023-02-05] MEDS: Nystatin 500,000 UNITS/5 ML UDCUP SSP SCH ×3 (12:27→21:25)
[2023-02-05] MEDS: Saccharomyces boulardii 250 MG CAP PO SCH (14:30)
[2023-02-05 16:57] LABS: Potassium 3.9 mmol/L (3.5-5.1)
[2023-02-05 20:20] LABS: Vancomycin, Trough 19.3 ug/mL
[2023-02-05] MEDS: Atorvastatin Calcium 40 MG TAB PO SCH (21:16)
[2023-02-05] MEDS: pyridOXINE 50 MG (B6) TAB PO SCH (21:16)
[2023-02-05] MEDS: Cyanocobalamin (Vitamin B-12) 1,000 MCG TAB PO SCH (21:17)
[2023-02-05] MEDS: Folic Acid 1 MG TAB PO SCH (21:17)
[2023-02-05] MEDS: Multivit, Therapeutic 1 TAB PO SCH (21:18)
[2023-02-06] MEDS: Ipratropium Bromide 2.5 ml Neb NEB SCH ×4 (00:35→19:37)
[2023-02-06] MEDS: Levothyroxine Sodium 25 MCG TAB PO SCH (05:33)
[2023-02-06] MEDS: Budesonide 0.5 MG/2 ML NEB NEB SCH ×2 (06:59→19:35)
[2023-02-06 07:05] LABS: #Eosinphils 0.2 thou/uL (0.0-0.7); #Lymphocytes 0.8 thou/uL (1.20-3.40); #Neutrophils 7.4 thou/uL (1.40-6.50); %Basophils 0.1 % (0.0-1.0); %Eosinophils 2.5 % (0.0-10.0); %Lymphocytes 8.7 % (21.0-51.0); %Monocytes 10.1 % (0.0-10.0); %Neutrophils 78.7 % (42.0-75.0); Hemoglobin 8.8 g/dL (12.0-16.0); Mean Corpuscular HGB CONC 33.6 g/dL (32.0-36.0); Mean Corpuscular Hemoglobin 30.4 pg (27.0-31.0); Mean Corpuscular Volume 90.6 fl (78.0-98.0); Mean Platelet Volume 6.2 fL (7.4-10.4); Platelet Count 188 10x3/uL (130-400); RBC Distribution Width 13.1 % (11.5-14.5); Red Blood Cell (RBC) Count 2.89 mill/uL (4.20-5.40); White Blood Cell (WBC) Count 9.4 10x3/uL (4.8-10.8)
[2023-02-06 07:24] LABS: Albumin 2.6 g/dL (3.4-4.8); Anion Gap 13 mmol/L (10-20); BUN (Urea Nitrogen) 26 mg/dL (9.8-20.1); BUN/Creatinine Ratio 37.14; Calc. Creatinine Clearance 50 mL/min (70-130); Calcium 8.3 mg/dL (7.8-10.44); Carbon Dioxide 21 mmol/L (23-31); Chloride 106 mmol/L (98-107); Estimated GFR 83; Glucose 116 mg/dL (83-110); Magnesium 1.7 mg/dL (1.6-2.6); Phosphorus 2.7 mg/dL (2.3-4.7); Potassium 3.5 mmol/L (3.5-5.1); Sodium 136 mmol/L (136-145)
[2023-02-06] MEDS ORDERED: Magnesium 2 GM/50 ML(in water) 2 GM in Premix Bag 1 BAG IVPB SCH (08:30)
[2023-02-06] MEDS: Cefepime 1 GM in Sodium Chloride 0.9% 100 ML IVPB SCH ×2 (08:31→21:30)
[2023-02-06] MEDS: levETIRAcetam 500 MG TAB PO SCH ×2 (08:34→21:37)
[2023-02-06] MEDS: Metoprolol Tartrate 25 MG TAB PO SCH ×2 (08:35→21:37)
[2023-02-06] MEDS: guaiFENesin ER 600 MG TAB PO SCH ×2 (08:37→21:37)
[2023-02-06] MEDS: Nystatin 500,000 UNITS/5 ML UDCUP SSP SCH (08:37)
[2023-02-06] MEDS: PHOS-NAK 1 PKT PACK PO SCH (08:37)
[2023-02-06] MEDS ORDERED: Potassium Chloride 20 MEQ TAB PO SCH (08:45)
[2023-02-06] MEDS: Doxycycline 100 MG in Sodium Chloride 0.9% 100 ML IVPB SCH ×2 (09:17→23:29)
[2023-02-06] MEDS: Vancomycin HCl 750 MG in Sodium Chloride 0.9% 250 ML 250 ML IVPB SCH ×2 (12:28→23:59)
[2023-02-06] MEDS: Saccharomyces boulardii 250 MG CAP PO SCH (13:47)
[2023-02-06] MEDS: Nystatin 500,000 UNITS/5 ML UDCUP SSW SCH ×3 (13:50→21:37)
[2023-02-06 18:27] LABS: Potassium 3.9 mmol/L (3.5-5.1)
[2023-02-06 18:49] LABS: Vancomycin, Trough 21.8 ug/mL
[2023-02-06] MEDS: Multivit, Therapeutic 1 TAB PO SCH (21:37)
[2023-02-06] MEDS: Atorvastatin Calcium 40 MG TAB PO SCH (21:37)
[2023-02-06] MEDS: pyridOXINE 50 MG (B6) TAB PO SCH (21:37)
[2023-02-06] MEDS: Folic Acid 1 MG TAB PO SCH (21:37)
[2023-02-06] MEDS: Cyanocobalamin (Vitamin B-12) 1,000 MCG TAB PO SCH (21:37)
[2023-02-07] MEDS: Ipratropium Bromide 2.5 ml Neb NEB SCH ×3 (00:44→14:54)
[2023-02-07 05:47] LABS: #Eosinphils 0.4 thou/uL (0.0-0.7); #Neutrophils 8.2 thou/uL (1.40-6.50); %Eosinophils 3.7 % (0.0-10.0); %Lymphocytes 9.3 % (21.0-51.0); %Monocytes 9.7 % (0.0-10.0); %Neutrophils 77.3 % (42.0-75.0); Hemoglobin 9.1 g/dL (12.0-16.0); Mean Corpuscular HGB CONC 33.2 g/dL (32.0-36.0); Mean Corpuscular Hemoglobin 30.1 pg (27.0-31.0); Mean Corpuscular Volume 90.5 fl (78.0-98.0); Mean Platelet Volume 6.5 fL (7.4-10.4); Platelet Count 238 10x3/uL (130-400); RBC Distribution Width 13.3 % (11.5-14.5); Red Blood Cell (RBC) Count 3.04 mill/uL (4.20-5.40); White Blood Cell (WBC) Count 10.6 10x3/uL (4.8-10.8)
[2023-02-07 06:04] LABS: Albumin 2.4 g/dL (3.4-4.8); Anion Gap 11 mmol/L (10-20); BUN (Urea Nitrogen) 24 mg/dL (9.8-20.1); BUN/Creatinine Ratio 33.33; Calc. Creatinine Clearance 49 mL/min (70-130); Calcium 8.6 mg/dL (7.8-10.44); Carbon Dioxide 22 mmol/L (23-31); Chloride 106 mmol/L (98-107); Estimated GFR 80; Glucose 97 mg/dL (83-110); Magnesium 1.9 mg/dL (1.6-2.6); Phosphorus 2.5 mg/dL (2.3-4.7); Potassium 3.6 mmol/L (3.5-5.1); Sodium 135 mmol/L (136-145)
[2023-02-07] MEDS: Levothyroxine Sodium 25 MCG TAB PO SCH (06:13)
[2023-02-07] MEDS: Budesonide 0.5 MG/2 ML NEB NEB SCH ×2 (07:58→19:47)
[2023-02-07] MEDS ORDERED: Magnesium 2 GM/50 ML(in water) 2 GM in Premix Bag 1 BAG IVPB SCH (08:00)
[2023-02-07] MEDS: Cefepime 1 GM in Sodium Chloride 0.9% 100 ML IVPB SCH ×2 (09:13→22:07)
[2023-02-07] MEDS: PHOS-NAK 1 PKT PACK PO SCH (09:13)
[2023-02-07] MEDS: Doxycycline 100 MG in Sodium Chloride 0.9% 100 ML IVPB SCH ×2 (09:14→22:08)
[2023-02-07] MEDS: levETIRAcetam 500 MG TAB PO SCH ×2 (09:14→22:08)
[2023-02-07] MEDS: Nystatin 500,000 UNITS/5 ML UDCUP SSW SCH ×4 (09:14→22:09)
[2023-02-07] MEDS: Metoprolol Tartrate 25 MG TAB PO SCH ×2 (09:14→22:09)
[2023-02-07] MEDS: guaiFENesin ER 600 MG TAB PO SCH ×2 (09:14→22:08)
[2023-02-07] MEDS: Vancomycin HCl 750 MG in Sodium Chloride 0.9% 250 ML 250 ML IVPB SCH ×2 (09:15→22:10)
[2023-02-07] MEDS: Saccharomyces boulardii 250 MG CAP PO SCH (14:37)
[2023-02-07] MEDS: Atorvastatin Calcium 40 MG TAB PO SCH (22:07)
[2023-02-07] MEDS: Cyanocobalamin (Vitamin B-12) 1,000 MCG TAB PO SCH (22:08)
[2023-02-07] MEDS: Folic Acid 1 MG TAB PO SCH (22:08)
[2023-02-07] MEDS: Multivit, Therapeutic 1 TAB PO SCH (22:09)
[2023-02-07] MEDS: pyridOXINE 50 MG (B6) TAB PO SCH (22:09)
[2023-02-08 06:20] LABS: Band 15 % (5-11); Hemoglobin 9.5 g/dL (12.0-16.0); Hypochromia SLIGHT = 6-15 cells (100X) (0-5/hpf); Lymphocytes 9 % (21-51); MDiff Complete? YES; Mean Corpuscular HGB CONC 32.3 g/dL (32.0-36.0); Mean Corpuscular Hemoglobin 29.7 pg (27.0-31.0); Mean Corpuscular Volume 91.7 fl (78.0-98.0); Mean Platelet Volume 6.4 fL (7.4-10.4); Monocytes 4 % (0-10); Neutrophil 71 % (42-75); Platelet Count 295 10x3/uL (130-400); Platelet Morphology Comment Appears Adequate; RBC Distribution Width 13.3 % (11.5-14.5); Reactive Lymphocytes 1 % (0-10); Red Blood Cell (RBC) Count 3.21 mill/uL (4.20-5.40); White Blood Cell (WBC) Count 11.3 10x3/uL (4.8-10.8)
[2023-02-08 06:24] LABS: ALT (SGPT) 50 U/L (8-55); AST (SGOT) 47 U/L (5-34); Albumin 2.5 g/dL (3.4-4.8); Alkaline Phosphatase 212 U/L (40-110); Anion Gap 12 mmol/L (10-20); BUN (Urea Nitrogen) 18 mg/dL (9.8-20.1); Bilirubin, Total 0.7 mg/dL (0.2-1.2); Calc. Creatinine Clearance 49 mL/min (70-130); Calcium 8.1 mg/dL (7.8-10.44); Carbon Dioxide 20 mmol/L (23-31); Chloride 105 mmol/L (98-107); Estimated GFR 80; Globulin 2.3 g/dL (2.4-3.5); Glucose 96 mg/dL (83-110); Potassium 3.4 mmol/L (3.5-5.1); Protein, Total 4.8 g/dL (5.8-8.1); Sodium 134 mmol/L (136-145)
[2023-02-08] MEDS: Levothyroxine Sodium 25 MCG TAB PO SCH (06:38)
[2023-02-08] MEDS ORDERED: Potassium Chloride 20 MEQ TAB PO SCH (08:00)
[2023-02-08] MEDS: Budesonide 0.5 MG/2 ML NEB NEB SCH ×2 (08:59→18:52)
[2023-02-08] MEDS: Vancomycin HCl 750 MG in Sodium Chloride 0.9% 250 ML 250 ML IVPB SCH ×2 (09:39→21:21)
[2023-02-08] MEDS: Doxycycline 100 MG in Sodium Chloride 0.9% 100 ML IVPB SCH (09:39)
[2023-02-08] MEDS: Cefepime 1 GM in Sodium Chloride 0.9% 100 ML IVPB SCH ×2 (09:40→21:18)
[2023-02-08] MEDS: guaiFENesin ER 600 MG TAB PO SCH ×2 (09:45→21:20)
[2023-02-08] MEDS: Nystatin 500,000 UNITS/5 ML UDCUP SSW SCH ×4 (09:45→21:21)
[2023-02-08] MEDS: Metoprolol Tartrate 25 MG TAB PO SCH ×2 (09:45→21:20)
[2023-02-08] MEDS: levETIRAcetam 500 MG TAB PO SCH ×2 (09:46→21:20)
[2023-02-08] MEDS: PHOS-NAK 1 PKT PACK PO SCH (09:46)
[2023-02-08] MEDS: Saccharomyces boulardii 250 MG CAP PO SCH (14:13)
[2023-02-08] MEDS: Atorvastatin Calcium 40 MG TAB PO SCH (21:18)
[2023-02-08] MEDS: pyridOXINE 50 MG (B6) TAB PO SCH (21:20)
[2023-02-08] MEDS: Folic Acid 1 MG TAB PO SCH (21:20)
[2023-02-08] MEDS: Multivit, Therapeutic 1 TAB PO SCH (21:20)
[2023-02-08] MEDS: Rifampin 300 MG CAP PO SCH (22:10)
[2023-02-08] MEDS: Cyanocobalamin (Vitamin B-12) 1,000 MCG TAB PO SCH (23:11)
[2023-02-09 05:20] LABS: #Eosinphils 0.2 thou/uL (0.0-0.7); #Lymphocytes 0.9 thou/uL (1.20-3.40); #Monocytes 0.9 thou/uL (0.11-0.59); #Neutrophils 8.9 thou/uL (1.40-6.50); %Basophils 0.2 % (0.0-1.0); %Eosinophils 1.9 % (0.0-10.0); %Lymphocytes 8.4 % (21.0-51.0); %Monocytes 8.1 % (0.0-10.0); %Neutrophils 81.4 % (42.0-75.0); Hemoglobin 9.2 g/dL (12.0-16.0); Mean Corpuscular HGB CONC 32.8 g/dL (32.0-36.0); Mean Corpuscular Hemoglobin 29.8 pg (27.0-31.0); Mean Corpuscular Volume 90.7 fl (78.0-98.0); Mean Platelet Volume 6.2 fL (7.4-10.4); Platelet Count 332 10x3/uL (130-400); RBC Distribution Width 13.1 % (11.5-14.5); Red Blood Cell (RBC) Count 3.08 mill/uL (4.20-5.40); White Blood Cell (WBC) Count 10.9 10x3/uL (4.8-10.8)
[2023-02-09 05:33] LABS: ALT (SGPT) 43 U/L (8-55); AST (SGOT) 35 U/L (5-34); Albumin 2.7 g/dL (3.4-4.8); Alkaline Phosphatase 183 U/L (40-110); Anion Gap 11 mmol/L (10-20); BUN (Urea Nitrogen) 16 mg/dL (9.8-20.1); Bilirubin, Total 0.4 mg/dL (0.2-1.2); Calc. Creatinine Clearance 49 mL/min (70-130); Calcium 7.9 mg/dL (7.8-10.44); Carbon Dioxide 20 mmol/L (23-31); Chloride 109 mmol/L (98-107); Estimated GFR 80; Globulin 2.1 g/dL (2.4-3.5); Glucose 100 mg/dL (83-110); Potassium 3.6 mmol/L (3.5-5.1); Protein, Total 4.8 g/dL (5.8-8.1); Sodium 136 mmol/L (136-145)
[2023-02-09] MEDS: Levothyroxine Sodium 25 MCG TAB PO SCH (06:28)
[2023-02-09] MEDS: Budesonide 0.5 MG/2 ML NEB NEB SCH ×2 (07:54→19:49)
[2023-02-09] MEDS: Vancomycin HCl 750 MG in Sodium Chloride 0.9% 250 ML 250 ML IVPB SCH ×2 (09:31→22:28)
[2023-02-09] MEDS: Nystatin 500,000 UNITS/5 ML UDCUP SSW SCH ×4 (09:33→21:56)
[2023-02-09] MEDS: Cefepime 1 GM in Sodium Chloride 0.9% 100 ML IVPB SCH ×2 (09:33→21:30)
[2023-02-09] MEDS: guaiFENesin ER 600 MG TAB PO SCH ×2 (09:34→21:55)
[2023-02-09] MEDS: Metoprolol Tartrate 25 MG TAB PO SCH ×2 (09:34→21:55)
[2023-02-09] MEDS: Rifampin 300 MG CAP PO SCH ×2 (09:34→21:55)
[2023-02-09] MEDS: levETIRAcetam 500 MG TAB PO SCH ×2 (09:34→21:55)
[2023-02-09] MEDS: PHOS-NAK 1 PKT PACK PO SCH (09:58)
[2023-02-09] MEDS: Saccharomyces boulardii 250 MG CAP PO SCH (14:23)
[2023-02-09 20:41] LABS: Vancomycin, Trough 23.5 ug/mL
[2023-02-09] MEDS: Atorvastatin Calcium 40 MG TAB PO SCH (21:53)
[2023-02-09] MEDS: Folic Acid 1 MG TAB PO SCH (21:55)
[2023-02-09] MEDS: Multivit, Therapeutic 1 TAB PO SCH (21:55)
[2023-02-09] MEDS: Cyanocobalamin (Vitamin B-12) 1,000 MCG TAB PO SCH (21:55)
[2023-02-09] MEDS: pyridOXINE 50 MG (B6) TAB PO SCH (21:55)
[2023-02-10 05:07] LABS: #Eosinphils 0.5 thou/uL (0.0-0.7); #Lymphocytes 1.1 thou/uL (1.20-3.40); #Monocytes 0.8 thou/uL (0.11-0.59); #Neutrophils 7.5 thou/uL (1.40-6.50); %Basophils 0.4 % (0.0-1.0); %Eosinophils 4.6 % (0.0-10.0); %Monocytes 8.2 % (0.0-10.0); %Neutrophils 75.7 % (42.0-75.0); Hemoglobin 9.3 g/dL (12.0-16.0); Mean Corpuscular HGB CONC 32.2 g/dL (32.0-36.0); Mean Corpuscular Hemoglobin 29.1 pg (27.0-31.0); Mean Corpuscular Volume 90.3 fl (78.0-98.0); Mean Platelet Volume 6.1 fL (7.4-10.4); Platelet Count 318 10x3/uL (130-400); RBC Distribution Width 13.2 % (11.5-14.5); Red Blood Cell (RBC) Count 3.18 mill/uL (4.20-5.40); White Blood Cell (WBC) Count 9.9 10x3/uL (4.8-10.8)
[2023-02-10 05:34] LABS: ALT (SGPT) 37 U/L (8-55); AST (SGOT) 27 U/L (5-34); Albumin 2.5 g/dL (3.4-4.8); Alkaline Phosphatase 184 U/L (40-110); Anion Gap 12 mmol/L (10-20); BUN (Urea Nitrogen) 15 mg/dL (9.8-20.1); Calc. Creatinine Clearance 49 mL/min (70-130); Calcium 8.1 mg/dL (7.8-10.44); Carbon Dioxide 20 mmol/L (23-31); Chloride 108 mmol/L (98-107); Estimated GFR 80; Globulin 2.2 g/dL (2.4-3.5); Glucose 101 mg/dL (83-110); Potassium 3.5 mmol/L (3.5-5.1); Protein, Total 4.7 g/dL (5.8-8.1); Sodium 136 mmol/L (136-145)
[2023-02-10] MEDS: Levothyroxine Sodium 25 MCG TAB PO SCH (05:46)
[2023-02-10] MEDS: Budesonide 0.5 MG/2 ML NEB NEB SCH (07:25)
[2023-02-10] MEDS ORDERED: Vancomycin HCl 500 MG in Sodium Chloride 0.9% 100 ML IVPB SCH (09:00)
[2023-02-10] MEDS: guaiFENesin ER 600 MG TAB PO SCH (09:09)
[2023-02-10] MEDS: Metoprolol Tartrate 25 MG TAB PO SCH (09:09)
[2023-02-10] MEDS: levETIRAcetam 500 MG TAB PO SCH (09:09)
[2023-02-10] MEDS: Nystatin 500,000 UNITS/5 ML UDCUP SSW SCH ×2 (09:10→13:47)
[2023-02-10] MEDS: Rifampin 300 MG CAP PO SCH (09:22)
[2023-02-10] MEDS: Acetaminophen 325 MG TAB PO PRN (09:22)
[2023-02-10 11:32] VITALS: BP 151/71; TEMP 98.1
[2023-02-10] MEDS: Cefepime 1 GM in Sodium Chloride 0.9% 100 ML IVPB SCH (12:11)
[2023-02-10] MEDS: Saccharomyces boulardii 250 MG CAP PO SCH (13:47)
== END 2023-02-10 14:05 | DRG 871 ==
LOC: NEURO 21:18
PROVIDERS: ADMIT Internal Medicine; ATTEND Hospitalist
PROC: 3E03329 Introduction of Other Anti-infective into Peripheral Vein, Percutaneous Approach (ICD-10-PCS; 2023-02-01)
PROC: 02HV33Z Insertion of Infusion Device into Superior Vena Cava, Percutaneous Approach (ICD-10-PCS; principal; 2023-02-08)
PROC: B5181ZA Fluoroscopy of Superior Vena Cava using Low Osmolar Contrast, Guidance (ICD-10-PCS; 2023-02-08)
PROC: 02PYX3Z Removal of Infusion Device from Great Vessel, External Approach (ICD-10-PCS; 2023-02-10)
PROC: 02HV33Z Insertion of Infusion Device into Superior Vena Cava, Percutaneous Approach (ICD-10-PCS; 2023-02-10)
DX: A41.51 Sepsis due to Escherichia coli [E. coli] (principal); G93.41 Metabolic encephalopathy; I63.9 Cerebral infarction, unspecified; I61.9 Nontraumatic intracerebral hemorrhage, unspecified; J15.29 Pneumonia due to other staphylococcus; C85.90 Non-Hodgkin lymphoma, unspecified, unspecified site; E87.1 Hypo-osmolality and hyponatremia; N30.00 Acute cystitis without hematuria; N17.9 Acute kidney failure, unspecified; E44.0 Moderate protein-calorie malnutrition; E87.29 Other acidosis; E87.20 Acidosis, unspecified; G81.91 Hemiplegia, unspecified affecting right dominant side; D80.1 Nonfamilial hypogammaglobulinemia; R47.01 Aphasia; A41.02 Sepsis due to Methicillin resistant Staphylococcus aureus; R65.20 Severe sepsis without septic shock; Z66 Do not resuscitate; Z51.5 Encounter for palliative care; D63.1 Anemia in chronic kidney disease; N18.30 Chronic kidney disease, stage 3 unspecified; E87.6 Hypokalemia; E83.42 Hypomagnesemia; E83.39 Other disorders of phosphorus metabolism; E03.9 Hypothyroidism, unspecified; I48.0 Paroxysmal atrial fibrillation; J32.4 Chronic pansinusitis; E78.5 Hyperlipidemia, unspecified; Z20.822 Contact with and (suspected) exposure to COVID-19; F32.A Depression, unspecified; Z79.899 Other long term (current) drug therapy; Z79.890 Hormone replacement therapy; Z68.22 Body mass index [BMI] 22.0-22.9, adult; Z79.01 Long term (current) use of anticoagulants; Z90.49 Acquired absence of other specified parts of digestive tract; Z90.710 Acquired absence of both cervix and uterus; R29.810 Facial weakness; R13.10 Dysphagia, unspecified
CPT/HCPCS: 36415; 36416; 36569; 70450; 70498; 70553; 71045; 80053; 80061; 80069; 80202; 82533; 82553; 83036; 83605; 83735; 83880; 84100; 84145; 84443; 84484; 85025; 86140; 87040; 87077; 87149; 87186; 87324; 87449; 87505; 87811; 93005; 93010; 93306; 93880; 95712; 95819; 95957; A9579; C1751; J0692; J1160; J1885; J3370; J3475; J3480; J3490; J7030; J7050; J7070; J7120; J7626; Q9967; S0020; U0003; U0005

== ENCOUNTER 2023-03-18 10:15 | Outpatient (CLI) | payer MEDICARE | END 2023-03-18 10:16 | disposition home or self-care (01) | LOC: BICRAD 10:15 | PROVIDERS: ATTEND Nurse Practitioner Family | DX: Z87.01 Personal history of pneumonia (recurrent) (principal) | CPT/HCPCS: 71046 ==

== ENCOUNTER 2023-07-13 09:24 | Outpatient (CLI) | payer MEDICARE | END 2023-07-13 09:25 | disposition home or self-care (01) | LOC: RAD 09:24 | PROVIDERS: ATTEND Internal Medicine Critical Care Medicine | DX: R06.00 Dyspnea, unspecified (principal); J98.4 Other disorders of lung | CPT/HCPCS: 71046 ==

== ENCOUNTER 2023-10-26 11:45 | Outpatient (CLI) | payer MEDICARE | END 2023-10-26 11:46 | disposition home or self-care (01) | LOC: PET 11:45 | PROVIDERS: ATTEND Internal Medicine Hematology & Oncology | DX: C85.88 Other specified types of non-Hodgkin lymphoma, lymph nodes of multiple sites (principal) | CPT/HCPCS: 78815; A9552 ==

== ENCOUNTER 2023-11-24 14:56 | Outpatient (CLI) | payer MEDICARE | END 2023-11-24 14:57 | disposition home or self-care (01) | LOC: BICRAD 14:56 | PROVIDERS: ATTEND Nurse Practitioner Family | DX: Z87.01 Personal history of pneumonia (recurrent) (principal) | CPT/HCPCS: 71046 ==